=== PATIENT | female | born 1950 | race Hispanic/Latino ===

== ENCOUNTER 2018-07-01 12:45 | Outpatient (RCR) | payer MEDICARE, OTHER, SELFPAY ==
--- NOTE | 2018-04-15 17:00 | PT.OIE ---
Current Diagnoses Other chronic pain (04/15/18) Pain in right shoulder (04/15/18) Pain in left shoulder (04/15/18) Cervicalgia (04/15/18) Lumbago with sciatica, right side (04/15/18) Lumbago with sciatica, left side (04/15/18) Other symptoms and signs involving the musculoskeletal system (04/15/18) Past Medical History (Last Reviewed 04/16/18 @ 12:12 by Quyen Castro, PT) Ankle fracture, left (Acute) Past Surgical History (Last Reviewed 04/16/18 @ 12:12 by Quyen Castro, PT) History of basal cell carcinoma (BCC) excision (Acute) Provider Visit Care Team Role Provider Type Marilyn Clifton MD Attending Provider Non-Staff Primary Care Provider Specialty: Medical Address: [address] [place] [address], [phone] Email: Physical Therapy Initial Evaluation PT-OP-A Visit Information Start: 04/14/18 16:14 Freq: Status: Active Protocol: Document 04/15/18 11:22 LRN (Rec: 04/15/18 12:14 LRN [id number]) Out-Patient Physical Therapy Visit Information Visit Information Visit Type Initial Evaluation Visit Start Time 11:22 Visit Stop Time 12:14 Total Visit Minutes 52 Visit Number 1 Number of MAGNETIC DOCTOR Visits 0 Evaluation Information Evaluation Date 04/15/18 PT-OP-B Current Condition Start: 04/14/18 16:14 Freq: Status: Active Protocol: Document 04/15/18 11:22 LRN (Rec: 04/15/18 12:14 LRN [id number]) Current Condition History of Current Condition Onset Date 3 months ago Current Complaints L shoulder & tailbone pain and tingling, R posterior thigh pain. History of Current Condition During this past summer after yard working she started to have onset of L shoulder and tailbone pain. She reports L shoulder tingling and tingling in the tailbone and radiating pain down the posterior R thigh. She normally does yoga for exercise but hasn't been doing yoga for the past month. She restarted yoga yesterday. PMH: Mole or possible wart on the inner L ear canal, Basal Cell Carcinoma, Chronic bilateral LBP with bilateral Sciatica, L ankle fracture 2013. Prior Treatments and Tests X-ray, results unknown. Pt reports doctor told her pain is due to muscles in upper back. Pt given muscle relaxers that was helpful. Future Testing and Treatments Planned Follow up appt in June 2018. Treatment Goals Patient/Caregiver Goals Goal with therapy is restart exercise without increasing pain. Prior Functional Status Baseline Function- ADL's Independent Baseline Function- Mobility Independent Baseline Function- Work/School Homemaker. Baseline Function- Other Restricted with lifting heavy things, moving furniture. Ongoing Mild pain. Current Functional Impairments (Reported) Functional Limitations- ADL's Pain with ADL's slowing function. Functional Limitations- Recreation/ Restricted with exercise Hobbies program. Functional Limitations- Other Limited with lifting. Personal Factors Other Personal Factors That May Effect Prior history of LBP and Therapy/Recovery radicular R leg pain with partial resolution. Prior history of L shoulder pain with partial resolution. PT-OP-C Subjective Start: 04/14/18 16:14 Freq: Status: Active Protocol: Document 04/15/18 11:22 LRN (Rec: 04/15/18 17:03 LRN [id number]) Patient Questionnaires Oswestry Low Back Index Oswestry Score 3 Oswestry Impairment 1 to 19% Impaired (Score 1-19) Quick Dash- Upper Extremity Quick Dash UE Score 13.63 Quick Dash UE Impairment 1 to 19% Impaired (Score 1-19) OP-PT Pain Assessment Pain Assessment Grid Paper Pain Assessment Grid Completed Yes Location Bilateral Lower Back Pain Location Details Tailbone Intensity 2 Scale Used Numeric (1 - 10) Frequency Intermittent Left Posterior Shoulder Pain Location Details Supraspinatus & Rhomboids Intensity 2 Scale Used Numeric (1 - 10) Frequency Intermittent PT-OP-E Functional Tests Start: 04/14/18 16:14 Freq: Status: Active Protocol: Document 04/15/18 11:22 LRN (Rec: 04/15/18 16:59 LRN [id number]) Functional Tests Daniela's Scratch Test Action 1: The subject is instructed to touch the opposite shoulder with his/her hand. This motion checks Glenohumeral adduction, internal rotation , horizontal adduction and scapular protraction Action 2: The subject is instructed to place his/her arm overhead and reach behind the neck to touch his/her upper back. This motion checks Glenohumeral abduction, external rotation and scapular upward rotation and elevation. Action 3: The subject puts his/her hand on the lower back and reaches upward as far as possible. This motion checks glenohumeral adduction, internal rotation and scapular retraction with downward rotation Action 2- Left T3 Action 2- Right T3 Action 3- Left T8 Action 3- Right T9 PT-OP-F Manual Assessment Start: 04/14/18 16:14 Freq: Status: Active Protocol: Document 04/15/18 11:22 LRN (Rec: 04/15/18 16:59 LRN [id number]) Manual Assessments Soft Tissue Assessment Soft Tissue Mobility Assessment Increased tension of L side of coccyx, L lumbar paraspinals and L posterior upper back intrascapular and supraspinatus. Joint Mobility Assessment Joint Mobility Assessment Decreased in Lumbar spine for R sidebend and L rotation. PT-OP-H Neuro Start: 04/14/18 16:14 Freq: Status: Active Protocol: Document 04/15/18 11:22 LRN (Rec: 04/15/18 16:59 LRN [id number]) Sensation Evaluation Gross Sensation Gross Sensation WNL Deep Tendon Reflex & Clonus Assessment Deep Tendon Reflex Left Achilles Deep Tendon Reflex 1+ Diminished PT-OP-J Posture/Palpation/Skin Start: 04/14/18 16:14 Freq: Status: Active Protocol: Document 04/15/18 11:22 LRN (Rec: 04/15/18 16:59 LRN [id number]) Posture Evaluation Position Standing Evaluation View All positions Shoulder Posture (L) Elevated Comments Posture Comments Standing Posture: Neck is R tilted, L shoulder is elevated and retracted, moderate Dowagers hump, decreased thoracic kyphosis except T6 is posterior displaced, T7 is R rotated, mid thoracic spine is C-curved with apex on the left, Coccyx is sidebent right , mild varus of legs. Palpation Assessment Location Two Palpation Location Coccyx Palpation Findings Tenderness Palpation Details L lateral side of coccyx tender. One Palpation Location L Supraspinatus muscle belly Palpation Findings Muscle Guarding Tenderness Trigger Point PT-OP-K Range of Motion Start: 04/14/18 16:14 Freq: Status: Active Protocol: Document 04/15/18 11:22 LRN (Rec: 04/15/18 16:59 LRN [id number]) Cervical Spine Range of Motion Cervical Spine Passive Percentage Rotation Left 90 Comments All other motions were WNL. Lumbar Spine Range of Motion Lumbar Spine Active Degrees Testing Position Standing Flexion 90 Extension 10 Rotation Left 40 Rotation Right 45 Lateral Flexion Left 20 Lateral Flexion Right 10 ROM Limitations Soft Tissue Tightness Bony Restriction Comments Rotation ROM is approximate. Hip Goniometric Range of Motion Hip Measured in Degrees Right Passive Testing Position Supine Internal Rotation 45 External Rotation 75 Left Passive Testing Position Supine Internal Rotation 40 External Rotation 75 PT-OP-L Special Tests Start: 04/14/18 16:14 Freq: Status: Active Protocol: Document 04/15/18 11:22 LRN (Rec: 04/15/18 16:59 LRN [id number]) Special Tests Lumbar Spine Special Tests Straight Leg Raise Test Results Negative bilaterally Shoulder Special Tests Elevation Impingement Test Results Negative Comments L shoulder PT-OP-M Strength Start: 04/14/18 16:14 Freq: Status: Active Protocol: Document 04/15/18 11:22 LRN (Rec: 04/15/18 16:59 LRN [id number]) Cervical Spine Strength Cervical Spine Manual Muscle Testing Testing Position Supine Hip Strength Hip Manual Muscle Testing Left Extension (S1) 4 Good Knee Strength Knee Manual Muscle Testing Left Flexion (S2) 4 Good Comments Generally LE strength is 5/5 bilaterally except as noted above for L hip and knee. PT-OP-Q Treatments Start: 04/14/18 16:14 Freq: Status: Active Protocol: Document 04/15/18 11:22 LRN (Rec: 04/15/18 16:59 LRN [id number]) Manual Therapy Treatment Joint Mobilizations Sacrum Direction Correcting a R rotated Sacrum Grade II Body Position Prone Coccyx Direction Correcting a R sidebend Grade III Body Position Prone Comments Oscillations. Self-Care/Home Management Treatment Education Patient Education Home Exercise Program Other Education Issued and reviewed Cervical Upper trapezius and supraspinatus stretch. PT-OP-T Assessment and Plan Start: 04/14/18 16:14 Freq: Status: Active Protocol: Document 04/15/18 11:22 LRN (Rec: 04/15/18 16:59 LRN [id number]) Physical Therapy Assessment Rehab Potential Rehabilitation Potential Good Evaluation Complexity Number of Personal Factors/Comorbidities 1-2 Number of Body Systems Impaired 4 or More Clinical Presentation at Evaluation Evolving Impairments Impairments Activity Tolerance Pain Posture ROM Soft Tissue Mobility Strength Tone Other Concerns Age Related Concerns > 65 years old. Barriers to Rehabilitation History of Basal cell carcinoma limiting modality use. Goals Three Impairment Upper back and low back/coccyx pain Demand Generation Manager Goal (LTG) Pt will be able to return to yoga exercise and home activities without onset of pain. LTG Duration 06/17/09 Two Impairment L shoulder pain limiting ability to sleep Demand Generation Manager Goal (LTG) Pt will be able to improve ability to sleep at night without being limited by pain. LTG Duration 05/17/18 One Impairment Lacks appropriate HEP Demand Generation Manager Goal (LTG) Pt will be independent in HEP self care exercises. LTG Duration 06/17/09 Assessment Summary Assessment Pt presents with muscle tightness and pain in the L Supraspinatus and scapular stabilizers resulting in limited L shoulder mobility and function. She has soft tissue tightness and mechanical dysfunction of the upper and low back/sacrum/ coccyx with radiating pain into the posterior thighs that are limiting functional mobility. The pt will benefit from skilled physical therapy for normalization of muscle tone, improved spinal and L shoulder mobility, improved LE strength and core stability and placement onto a self care HEP. Physical Therapy Plan Frequency and Duration Frequency of Treatment 2x/Week Plan of Care Start Date 04/15/18 Plan of Care End Date 06/13/18 Therapeutic Interventions Therapeutic Interventions Home Exercise Program Joint Mobilizations Manual Therapy Neuromuscular Re-education Patient/Caregiver Education Self-Care/Home Management Soft Tissue Mobilization Taping Therapeutic Exercises Modalities Cold Pack/Ice Massage Hot Packs Next Visit Focus/Plan Next Note Type Treatment Note Next Visit Plan Review HEP issued. Start exercise bike; f/b LE neural & L hip IR stretch; strengthening: L hamstrings & hip extensors, core stabilization; manual therapy to thoracic and lumbar spine/ coccyx & L Supraspinatus/ Rhomboids; education on proper posturing. End with cryotherapy.
--- NOTE | 2018-04-16 12:23 | PT.OPPOC ---
Current Diagnoses Other chronic pain (04/15/18) Pain in right shoulder (04/15/18) Pain in left shoulder (04/15/18) Cervicalgia (04/15/18) Lumbago with sciatica, right side (04/15/18) Lumbago with sciatica, left side (04/15/18) Other symptoms and signs involving the musculoskeletal system (04/15/18) Provider Visit Care Team Role Provider Type Marilyn Clifton MD Attending Provider Non-Staff Primary Care Provider Specialty: Medical Address: [address] [place] [address], [phone] Email: Plan Of Care PT-OP-T Assessment and Plan Start: 04/14/18 16:14 Freq: Status: Active Protocol: Document 04/15/18 11:22 LRN (Rec: 04/15/18 16:59 LRN [id number]) Physical Therapy Assessment Rehab Potential Rehabilitation Potential Good Evaluation Complexity Number of Personal Factors/Comorbidities 1-2 Number of Body Systems Impaired 4 or More Clinical Presentation at Evaluation Evolving Impairments Impairments Activity Tolerance Pain Posture ROM Soft Tissue Mobility Strength Tone Other Concerns Age Related Concerns > 65 years old. Barriers to Rehabilitation History of Basal cell carcinoma limiting modality use. Goals Three Impairment Upper back and low back/coccyx pain International Trade Manager Goal (LTG) Pt will be able to return to yoga exercise and home activities without onset of pain. LTG Duration 06/17/09 Two Impairment L shoulder pain limiting ability to sleep Longterm Goal (LTG) Pt will be able to improve ability to sleep at night without being limited by pain. LTG Duration 05/17/18 One Impairment Lacks appropriate HEP Longterm Goal (LTG) Pt will be independent in HEP self care exercises. LTG Duration 06/17/09 Assessment Summary Assessment Pt presents with muscle tightness and pain in the L Supraspinatus and scapular stabilizers resulting in limited L shoulder mobility and function. She has soft tissue tightness and mechanical dysfunction of the upper and low back/sacrum/ coccyx with radiating pain into the posterior thighs that are limiting functional mobility. The pt will benefit from skilled physical therapy for normalization of muscle tone, improved spinal and L shoulder mobility, improved LE strength and core stability and placement onto a self care HEP. Physical Therapy Plan Frequency and Duration Frequency of Treatment 2x/Week Plan of Care Start Date 04/15/18 Plan of Care End Date 06/13/18 Therapeutic Interventions Therapeutic Interventions Home Exercise Program Joint Mobilizations Manual Therapy Neuromuscular Re-education Patient/Caregiver Education Self-Care/Home Management Soft Tissue Mobilization Taping Therapeutic Exercises Modalities Cold Pack/Ice Massage Hot Packs Next Visit Focus/Plan Next Note Type Treatment Note Next Visit Plan Review HEP issued. Start exercise bike; f/b LE neural & L hip IR stretch; strengthening: L hamstrings & hip extensors, core stabilization; manual therapy to thoracic and lumbar spine/ coccyx & L Supraspinatus/ Rhomboids; education on proper posturing. End with cryotherapy. Plan of Care Dates Plan of Care Start Date 04/15/18 Plan of Care End Date 06/13/18 Please Sign and Return: I have reviewed this Plan of Care and certify that the skilled therapy services above are required to meet the patient?s needs. Physician Signature Date Printed Name and Credentials Clinical Instructor Signature Printed Name and Credentials
--- NOTE | 2018-04-17 09:48 | PT.OTN ---
Current Diagnoses Other chronic pain (04/17/18) Pain in right shoulder (04/17/18) Pain in left shoulder (04/17/18) Cervicalgia (04/17/18) Lumbago with sciatica, right side (04/17/18) Lumbago with sciatica, left side (04/17/18) Physical Therapy Treatment Note PT-OP-A Visit Information Start: 04/14/18 16:14 Freq: Status: Active Protocol: Document 04/17/18 08:17 LRN (Rec: 04/17/18 09:04 LRN [id number]) Out-Patient Physical Therapy Visit Information Visit Information Visit Type Treatment Note Visit Start Time 08:17 Visit Stop Time 09:07 Total Visit Minutes 50 Visit Number 07/13 Number of PBX INSTALLER Visits 0 Evaluation Information Evaluation Date 04/15/18 PT-OP-B Current Condition Start: 04/14/18 16:14 Freq: Status: Active Protocol: Document 04/15/18 11:22 LRN (Rec: 04/15/18 12:14 LRN [id number]) Current Condition History of Current Condition Onset Date 3 months ago Current Complaints L shoulder & tailbone pain and tingling, R posterior thigh pain. History of Current Condition During this past summer after yard working she started to have onset of L shoulder and tailbone pain. She reports L shoulder tingling and tingling in the tailbone and radiating pain down the posterior R thigh. She normally does yoga for exercise but hasn't been doing yoga for the past month. She restarted yoga yesterday. PMH: Mole or possible wart on the inner L ear canal, Basal Cell Carcinoma, Chronic bilateral LBP with bilateral Sciatica, L ankle fracture 2013. Prior Treatments and Tests X-ray, results unknown. Pt reports doctor told her pain is due to muscles in upper back. Pt given muscle relaxers that was helpful. Future Testing and Treatments Planned Follow up MD appt in June 2018. Treatment Goals Patient/Caregiver Goals Goal with therapy is restart exercise without increasing pain. Prior Functional Status Baseline Function- ADL's Independent Baseline Function- Mobility Independent Baseline Function- Work/School Homemaker. Baseline Function- Other Restricted with lifting heavy things, moving furniture. Ongoing Mild pain. Current Functional Impairments (Reported) Functional Limitations- ADL's Pain with ADL's slowing function. Functional Limitations- Recreation/ Restricted with exercise Hobbies program. Functional Limitations- Other Limited with lifting. Personal Factors Other Personal Factors That May Effect Prior history of LBP and Therapy/Recovery radicular R leg pain with partial resolution. Prior history of L shoulder pain with partial resolution. PT-OP-C Subjective Start: 04/14/18 16:14 Freq: Status: Active Protocol: Document 04/17/18 08:17 LRN (Rec: 04/17/18 09:04 LRN [id number]) OP-PT Subjective Patient Comments Patient Comments States only having tingling in the posterior left Upper Back . Did Yoga this week and did home neck stretch. OP-PT Pain Assessment Pain Assessment Grid Paper Pain Assessment Grid Completed No Location Bilateral Lower Back Intensity 0 Left Posterior Shoulder Intensity 2 Description- Other Tingling PT-OP-E Functional Tests Start: 04/14/18 16:14 Freq: Status: Active Protocol: Document 04/15/18 11:22 LRN (Rec: 04/15/18 16:59 LRN [id number]) Functional Tests Apley's Scratch Test Action 1: The subject is instructed to touch the opposite shoulder with his/her hand. This motion checks Glenohumeral adduction, internal rotation , horizontal adduction and scapular protraction Action 2: The subject is instructed to place his/her arm overhead and reach behind the neck to touch his/her upper back. This motion checks Glenohumeral abduction, external rotation and scapular upward rotation and elevation. Action 3: The subject puts his/her hand on the lower back and reaches upward as far as possible. This motion checks glenohumeral adduction, internal rotation and scapular retraction with downward rotation Action 2- Left T3 Action 2- Right T3 Action 3- Left T8 Action 3- Right T9 PT-OP-F Manual Assessment Start: 04/14/18 16:14 Freq: Status: Active Protocol: Document 04/15/18 11:22 LRN (Rec: 04/15/18 16:59 LRN [id number]) Manual Assessments Soft Tissue Assessment Soft Tissue Mobility Assessment Increased tension of L side of coccyx, L lumbar paraspinals and L posterior upper back intrascapular and supraspinatus. Joint Mobility Assessment Joint Mobility Assessment Decreased in Lumbar spine for R sidebend and L rotation. PT-OP-H Neuro Start: 04/14/18 16:14 Freq: Status: Active Protocol: Document 04/15/18 11:22 LRN (Rec: 04/15/18 16:59 LRN [id number]) Sensation Evaluation Gross Sensation Gross Sensation WNL Deep Tendon Reflex & Clonus Assessment Deep Tendon Reflex Left Achilles Deep Tendon Reflex 1+ Diminished PT-OP-J Posture/Palpation/Skin Start: 04/14/18 16:14 Freq: Status: Active Protocol: Document 04/15/18 11:22 LRN (Rec: 04/15/18 16:59 LRN [id number]) Posture Evaluation Position Standing Evaluation View All positions Shoulder Posture (L) Elevated Comments Posture Comments Standing Posture: Neck is R tilted, L shoulder is elevated and retracted, moderate Dowagers hump, decreased thoracic kyphosis except T6 is posterior displaced, T7 is R rotated, mid thoracic spine is C-curved with apex on the left, Coccyx is sidebent right , mild varus of legs. Palpation Assessment Location Two Palpation Location Coccyx Palpation Findings Tenderness Palpation Details L lateral side of coccyx tender. One Palpation Location L Supraspinatus muscle belly Palpation Findings Muscle Guarding Tenderness Trigger Point PT-OP-K Range of Motion Start: 04/14/18 16:14 Freq: Status: Active Protocol: Document 04/15/18 11:22 LRN (Rec: 04/15/18 16:59 LRN [id number]) Cervical Spine Range of Motion Cervical Spine Passive Percentage Rotation Left 90 Comments All other motions were WNL. Lumbar Spine Range of Motion Lumbar Spine Active Degrees Testing Position Standing Flexion 90 Extension 10 Rotation Left 40 Rotation Right 45 Lateral Flexion Left 20 Lateral Flexion Right 10 ROM Limitations Soft Tissue Tightness Bony Restriction Comments Rotation ROM is approximate. Hip Goniometric Range of Motion Hip Measured in Degrees Right Passive Testing Position Supine Internal Rotation 45 External Rotation 75 Left Passive Testing Position Supine Internal Rotation 40 External Rotation 75 PT-OP-L Special Tests Start: 04/14/18 16:14 Freq: Status: Active Protocol: Document 04/15/18 11:22 LRN (Rec: 04/15/18 16:59 LRN [id number]) Special Tests Lumbar Spine Special Tests Straight Leg Raise Test Results Negative bilaterally Shoulder Special Tests Elevation Impingement Test Results Negative Comments L shoulder PT-OP-M Strength Start: 04/14/18 16:14 Freq: Status: Active Protocol: Document 04/15/18 11:22 LRN (Rec: 04/15/18 16:59 LRN [id number]) Cervical Spine Strength Cervical Spine Manual Muscle Testing Testing Position Supine Hip Strength Hip Manual Muscle Testing Left Extension (S1) 4 Good Knee Strength Knee Manual Muscle Testing Left Flexion (S2) 4 Good Comments Generally LE strength is 5/5 bilaterally except as noted above for L hip and knee. PT-OP-Q Treatments Start: 04/14/18 16:14 Freq: Status: Active Protocol: Document 04/17/18 08:17 LRN (Rec: 04/17/18 09:04 LRN [id number]) Cardio Equipment Bicycle (Upright) Duration (Minutes) 6 Resistance 3 Seat Position Min Other With: Shoulder rolls, L Middle Trap/Rhomboid stretch Therapeutic Exercises Supine Exercises KTC stretch Side bilateral Reps/Minutes 5' HS/LE Neural stretch Side bilateral Reps/Minutes 5' Sitting Exercises C/S & Shoulders AROM Side bilateral Rhomboid/Mid Trap strengthening Side right Reps/Minutes 10x3 Comments Exercise after stretching of Rhomboid/Mid Trap Rhomboid/Mid Trap Stretch Side left Reps/Minutes 4' Comments Both on and off ex bike UT & Lev Scap stretch Side left Reps/Minutes 2' each Manual Therapy Treatment Joint Mobilizations T2-T6 Direction Correction of rotations Grade III Body Position Prone Reps/Duration 15' Comments Grade II-III for Oscillations Self-Care/Home Management Treatment Education Other Education I/S pt to do same of L Rhomboid/MT stretch f/b R Rhomboid/MT strengthening. PT-OP-R Modalities Start: 04/14/18 16:14 Freq: Status: Active Protocol: Document 04/17/18 08:17 LRN (Rec: 04/17/18 09:04 LRN [id number]) Hot Pack/Cold Pack Treatment Cold Pack Location Upper back Treatment Duration (minutes) 10 Comments Extra Towel protection PT-OP-T Assessment and Plan Start: 04/14/18 16:14 Freq: Status: Active Protocol: Document 04/17/18 08:17 LRN (Rec: 04/17/18 09:04 LRN [id number]) Physical Therapy Assessment Assessment Summary Assessment + response to therapy with resolution of left upper back tingling. Physical Therapy Plan Frequency and Duration Frequency of Treatment 2x/Week Plan of Care Start Date 04/15/18 Plan of Care End Date 06/13/18 Next Visit Focus/Plan Next Visit Plan Start ex with L upper back stretch and R upper back strengthening; review LE neural and issue handout. Start L hip IR stretch & strengthen L hamstrings & hip extensors. Manual therapy to thoracic and lumbar spine, coccyx & L supraspinatus ( check rhomboids). Core stabilization. Posture training sitting and standing. End Cryotherapy.
--- NOTE | 2018-04-22 12:14 | PT.OTN ---
Current Diagnoses Other chronic pain (04/22/18) Pain in right shoulder (04/22/18) Pain in left shoulder (04/22/18) Cervicalgia (04/22/18) Lumbago with sciatica, right side (04/22/18) Lumbago with sciatica, left side (04/22/18) Physical Therapy Treatment Note PT-OP-A Visit Information Start: 04/14/18 16:14 Freq: Status: Active Protocol: Document 04/22/18 11:15 LRN (Rec: 04/22/18 12:13 LRN [id number]) Out-Patient Physical Therapy Visit Information Visit Information Visit Type Treatment Note Visit Start Time 11:15 Visit Stop Time 12:10 Total Visit Minutes 55 Visit Number 08/10 Number of ASSISTANT CHIEF NURSING OFFICER Visits 0 Evaluation Information Evaluation Date 04/15/18 PT-OP-B Current Condition Start: 04/14/18 16:14 Freq: Status: Active Protocol: Document 04/15/18 11:22 LRN (Rec: 04/15/18 12:14 LRN [id number]) Current Condition History of Current Condition Onset Date 3 months ago Current Complaints L shoulder & tailbone pain and tingling, R posterior thigh pain. History of Current Condition During this past summer after yard working she started to have onset of L shoulder and tailbone pain. She reports L shoulder tingling and tingling in the tailbone and radiating pain down the posterior R thigh. She normally does yoga for exercise but hasn't been doing yoga for the past month. She restarted yoga yesterday. PMH: Mole or possible wart on the inner L ear canal, Basal Cell Carcinoma, Chronic bilateral LBP with bilateral Sciatica, L ankle fracture 2013. Prior Treatments and Tests X-ray, results unknown. Pt reports doctor told her pain is due to muscles in upper back. Pt given muscle relaxers that was helpful. Future Testing and Treatments Planned Follow up MD appt in June 2018. Treatment Goals Patient/Caregiver Goals Goal with therapy is restart exercise without increasing pain. Prior Functional Status Baseline Function- ADL's Independent Baseline Function- Mobility Independent Baseline Function- Work/School Homemaker. Baseline Function- Other Restricted with lifting heavy things, moving furniture. Ongoing Mild pain. Current Functional Impairments (Reported) Functional Limitations- ADL's Pain with ADL's slowing function. Functional Limitations- Recreation/ Restricted with exercise Hobbies program. Functional Limitations- Other Limited with lifting. Personal Factors Other Personal Factors That May Effect Prior history of LBP and Therapy/Recovery radicular R leg pain with partial resolution. Prior history of L shoulder pain with partial resolution. PT-OP-C Subjective Start: 04/14/18 16:14 Freq: Status: Active Protocol: Document 04/22/18 11:15 LRN (Rec: 04/22/18 12:13 LRN [id number]) OP-PT Subjective Patient Comments Patient Comments Notices most of the time the tingling is after waking up in the morning. OP-PT Pain Assessment Pain Assessment Grid Paper Pain Assessment Grid Completed No Location Bilateral Lower Back Intensity 0 PT-OP-E Functional Tests Start: 04/14/18 16:14 Freq: Status: Active Protocol: Document 04/15/18 11:22 LRN (Rec: 04/15/18 16:59 LRN [id number]) Functional Tests Apley's Scratch Test Action 1: The subject is instructed to touch the opposite shoulder with his/her hand. This motion checks Glenohumeral adduction, internal rotation , horizontal adduction and scapular protraction Action 2: The subject is instructed to place his/her arm overhead and reach behind the neck to touch his/her upper back. This motion checks Glenohumeral abduction, external rotation and scapular upward rotation and elevation. Action 3: The subject puts his/her hand on the lower back and reaches upward as far as possible. This motion checks glenohumeral adduction, internal rotation and scapular retraction with downward rotation Action 2- Left T3 Action 2- Right T3 Action 3- Left T8 Action 3- Right T9 PT-OP-F Manual Assessment Start: 04/14/18 16:14 Freq: Status: Active Protocol: Document 04/15/18 11:22 LRN (Rec: 04/15/18 16:59 LRN [id number]) Manual Assessments Soft Tissue Assessment Soft Tissue Mobility Assessment Increased tension of L side of coccyx, L lumbar paraspinals and L posterior upper back intrascapular and supraspinatus. Joint Mobility Assessment Joint Mobility Assessment Decreased in Lumbar spine for R sidebend and L rotation. PT-OP-H Neuro Start: 04/14/18 16:14 Freq: Status: Active Protocol: Document 04/15/18 11:22 LRN (Rec: 04/15/18 16:59 LRN [id number]) Sensation Evaluation Gross Sensation Gross Sensation WNL Deep Tendon Reflex & Clonus Assessment Deep Tendon Reflex Left Achilles Deep Tendon Reflex 1+ Diminished PT-OP-J Posture/Palpation/Skin Start: 04/14/18 16:14 Freq: Status: Active Protocol: Document 04/15/18 11:22 LRN (Rec: 04/15/18 16:59 LRN [id number]) Posture Evaluation Position Standing Evaluation View All positions Shoulder Posture (L) Elevated Comments Posture Comments Standing Posture: Neck is R tilted, L shoulder is elevated and retracted, moderate Dowagers hump, decreased thoracic kyphosis except T6 is posterior displaced, T7 is R rotated, mid thoracic spine is C-curved with apex on the left, Coccyx is sidebent right , mild varus of legs. Palpation Assessment Location Two Palpation Location Coccyx Palpation Findings Tenderness Palpation Details L lateral side of coccyx tender. One Palpation Location L Supraspinatus muscle belly Palpation Findings Muscle Guarding Tenderness Trigger Point PT-OP-K Range of Motion Start: 04/14/18 16:14 Freq: Status: Active Protocol: Document 04/15/18 11:22 LRN (Rec: 04/15/18 16:59 LRN [id number]) Cervical Spine Range of Motion Cervical Spine Passive Percentage Rotation Left 90 Comments All other motions were WNL. Lumbar Spine Range of Motion Lumbar Spine Active Degrees Testing Position Standing Flexion 90 Extension 10 Rotation Left 40 Rotation Right 45 Lateral Flexion Left 20 Lateral Flexion Right 10 ROM Limitations Soft Tissue Tightness Bony Restriction Comments Rotation ROM is approximate. Hip Goniometric Range of Motion Hip Measured in Degrees Right Passive Testing Position Supine Internal Rotation 45 External Rotation 75 Left Passive Testing Position Supine Internal Rotation 40 External Rotation 75 PT-OP-L Special Tests Start: 04/14/18 16:14 Freq: Status: Active Protocol: Document 04/15/18 11:22 LRN (Rec: 04/15/18 16:59 LRN [id number]) Special Tests Lumbar Spine Special Tests Straight Leg Raise Test Results Negative bilaterally Shoulder Special Tests Elevation Impingement Test Results Negative Comments L shoulder PT-OP-M Strength Start: 04/14/18 16:14 Freq: Status: Active Protocol: Document 04/15/18 11:22 LRN (Rec: 04/15/18 16:59 LRN [id number]) Cervical Spine Strength Cervical Spine Manual Muscle Testing Testing Position Supine Hip Strength Hip Manual Muscle Testing Left Extension (S1) 4 Good Knee Strength Knee Manual Muscle Testing Left Flexion (S2) 4 Good Comments Generally LE strength is 5/5 bilaterally except as noted above for L hip and knee. PT-OP-Q Treatments Start: 04/14/18 16:14 Freq: Status: Active Protocol: Document 04/22/18 11:15 LRN (Rec: 04/22/18 12:13 LRN [id number]) Cardio Equipment Bicycle (Upright) Duration (Minutes) 6 Resistance 3 Seat Position Min Other With: Shoulder rolls, L Middle Trap/Rhomboid stretch Therapeutic Exercises Supine Exercises HS/LE Neural stretch Side bilateral Reps/Minutes 5' Prone Exercises Hip Extension Prone Exercise Name Leg lift Side bilateral Reps/Minutes 10x Hamstring strengthening Prone Exercise Name Knee flexion Side left Reps/Minutes 30 Sidelying Exercises Reverse Clam Sidelying Exercise Name R sidelie lifting L foot. Side left Reps/Minutes 15x2 Sitting Exercises Rhomboid/Mid Trap strengthening Side right Reps/Minutes 10x3 Comments Exercise after stretching of Rhomboid/Mid Trap Rhomboid/Mid Trap Stretch Side left Reps/Minutes 4' Comments Both on and off ex bike Manual Therapy Treatment Joint Mobilizations T2-T6 Direction Correction of rotations Grade III Body Position Prone Reps/Duration 15' Comments Grade II-III for Oscillations Sacrum Joint Sacrum Direction Correcting a L rotation Body Position Prone Coccyx Joint Coccyx Direction Correcting a L rotation Grade III Body Position Prone Comments Oscillations. Self-Care/Home Management Treatment Education Other Education I/S in LE neural stretch & L Piriformis stretch. Pt has LE neural/hamstring stretch handout from previous PT sessions. Pt can ex L hip ext , knee flexion if she wants. PT-OP-R Modalities Start: 04/14/18 16:14 Freq: Status: Active Protocol: Document 04/22/18 11:15 LRN (Rec: 04/22/18 12:13 LRN [id number]) Hot Pack/Cold Pack Treatment Cold Pack Location Upper back Treatment Duration (minutes) 10 Comments Extra Towel protection PT-OP-T Assessment and Plan Start: 04/14/18 16:14 Freq: Status: Active Protocol: Document 04/22/18 11:15 LRN (Rec: 04/22/18 12:13 LRN [id number]) Physical Therapy Assessment Progress Towards Goals Progress Towards Goals Progressing Toward Goals Assessment Summary Assessment Pt low back and hip muscle tone symmetry is much improved . She did not tolerate hip ext on R, with onset of tingling in the posterior thigh, but tolerated well strengthening on the left ( weak side), probably due to decreased core stability. Further L sided strengthening needed for stability. Physical Therapy Plan Next Visit Focus/Plan Next Visit Plan Cont L upper back strengthening followed by stretch. Review stretch to L hip IR and strengthening of L hip (hamstrings & extensors), manual therapy to T/S, and if needed to L/S & Coccyx. Add manual therapy to L Supraspinatus. Strengthen Core.
--- NOTE | 2018-04-29 13:56 | PT.OTN ---
Current Diagnoses Other chronic pain (04/29/18) Pain in right shoulder (04/29/18) Pain in left shoulder (04/29/18) Cervicalgia (04/29/18) Lumbago with sciatica, right side (04/29/18) Lumbago with sciatica, left side (04/29/18) Physical Therapy Treatment Note PT-OP-A Visit Information Start: 04/14/18 16:14 Freq: Status: Active Protocol: Document 04/29/18 11:25 LRN (Rec: 04/29/18 12:30 LRN [id number]) Out-Patient Physical Therapy Visit Information Visit Information Visit Type Treatment Note Visit Start Time 11:25 Visit Stop Time 12:25 Total Visit Minutes 60 Visit Number 4/ Number of LOCOMOTIVE ENGINEER Visits 0 Evaluation Information Evaluation Date 04/15/18 PT-OP-B Current Condition Start: 04/14/18 16:14 Freq: Status: Active Protocol: Document 04/15/18 11:22 LRN (Rec: 04/15/18 12:14 LRN [id number]) Current Condition History of Current Condition Onset Date 3 months ago Current Complaints L shoulder & tailbone pain and tingling, R posterior thigh pain. History of Current Condition During this past summer after yard working she started to have onset of L shoulder and tailbone pain. She reports L shoulder tingling and tingling in the tailbone and radiating pain down the posterior R thigh. She normally does yoga for exercise but hasn't been doing yoga for the past month. She restarted yoga yesterday. PMH: Mole or possible wart on the inner L ear canal, Basal Cell Carcinoma, Chronic bilateral LBP with bilateral Sciatica, L ankle fracture 2013. Prior Treatments and Tests X-ray, results unknown. Pt reports doctor told her pain is due to muscles in upper back. Pt given muscle relaxers that was helpful. Future Testing and Treatments Planned Follow up MD appt in June 2018. Treatment Goals Patient/Caregiver Goals Goal with therapy is restart exercise without increasing pain. Prior Functional Status Baseline Function- ADL's Independent Baseline Function- Mobility Independent Baseline Function- Work/School Homemaker. Baseline Function- Other Restricted with lifting heavy things, moving furniture. Ongoing Mild pain. Current Functional Impairments (Reported) Functional Limitations- ADL's Pain with ADL's slowing function. Functional Limitations- Recreation/ Restricted with exercise Hobbies program. Functional Limitations- Other Limited with lifting. Personal Factors Other Personal Factors That May Effect Prior history of LBP and Therapy/Recovery radicular R leg pain with partial resolution. Prior history of L shoulder pain with partial resolution. PT-OP-C Subjective Start: 04/14/18 16:14 Freq: Status: Active Protocol: Document 04/29/18 11:25 LRN (Rec: 04/29/18 12:34 LRN [id number]) OP-PT Subjective Patient Comments Patient Comments L shoulder is bothering her more than LB. Back is a little better. PT-OP-E Functional Tests Start: 04/14/18 16:14 Freq: Status: Active Protocol: Document 04/15/18 11:22 LRN (Rec: 04/15/18 16:59 LRN [id number]) Functional Tests Apley's Scratch Test Action 1: The subject is instructed to touch the opposite shoulder with his/her hand. This motion checks Glenohumeral adduction, internal rotation , horizontal adduction and scapular protraction Action 2: The subject is instructed to place his/her arm overhead and reach behind the neck to touch his/her upper back. This motion checks Glenohumeral abduction, external rotation and scapular upward rotation and elevation. Action 3: The subject puts his/her hand on the lower back and reaches upward as far as possible. This motion checks glenohumeral adduction, internal rotation and scapular retraction with downward rotation Action 2- Left T3 Action 2- Right T3 Action 3- Left T8 Action 3- Right T9 PT-OP-F Manual Assessment Start: 04/14/18 16:14 Freq: Status: Active Protocol: Document 04/15/18 11:22 LRN (Rec: 04/15/18 16:59 LRN [id number]) Manual Assessments Soft Tissue Assessment Soft Tissue Mobility Assessment Increased tension of L side of coccyx, L lumbar paraspinals and L posterior upper back intrascapular and supraspinatus. Joint Mobility Assessment Joint Mobility Assessment Decreased in Lumbar spine for R sidebend and L rotation. PT-OP-H Neuro Start: 04/14/18 16:14 Freq: Status: Active Protocol: Document 04/15/18 11:22 LRN (Rec: 04/15/18 16:59 LRN [id number]) Sensation Evaluation Gross Sensation Gross Sensation WNL Deep Tendon Reflex & Clonus Assessment Deep Tendon Reflex Left Achilles Deep Tendon Reflex 1+ Diminished PT-OP-J Posture/Palpation/Skin Start: 04/14/18 16:14 Freq: Status: Active Protocol: Document 04/15/18 11:22 LRN (Rec: 04/15/18 16:59 LRN [id number]) Posture Evaluation Position Standing Evaluation View All positions Shoulder Posture (L) Elevated Comments Posture Comments Standing Posture: Neck is R tilted, L shoulder is elevated and retracted, moderate Dowagers hump, decreased thoracic kyphosis except T6 is posterior displaced, T7 is R rotated, mid thoracic spine is C-curved with apex on the left, Coccyx is sidebent right , mild varus of legs. Palpation Assessment Location Two Palpation Location Coccyx Palpation Findings Tenderness Palpation Details L lateral side of coccyx tender. One Palpation Location L Supraspinatus muscle belly Palpation Findings Muscle Guarding Tenderness Trigger Point PT-OP-K Range of Motion Start: 04/14/18 16:14 Freq: Status: Active Protocol: Document 04/15/18 11:22 LRN (Rec: 04/15/18 16:59 LRN [id number]) Cervical Spine Range of Motion Cervical Spine Passive Percentage Rotation Left 90 Comments All other motions were WNL. Lumbar Spine Range of Motion Lumbar Spine Active Degrees Testing Position Standing Flexion 90 Extension 10 Rotation Left 40 Rotation Right 45 Lateral Flexion Left 20 Lateral Flexion Right 10 ROM Limitations Soft Tissue Tightness Bony Restriction Comments Rotation ROM is approximate. Hip Goniometric Range of Motion Hip Measured in Degrees Right Passive Testing Position Supine Internal Rotation 45 External Rotation 75 Left Passive Testing Position Supine Internal Rotation 40 External Rotation 75 PT-OP-L Special Tests Start: 04/14/18 16:14 Freq: Status: Active Protocol: Document 04/15/18 11:22 LRN (Rec: 04/15/18 16:59 LRN [id number]) Special Tests Lumbar Spine Special Tests Straight Leg Raise Test Results Negative bilaterally Shoulder Special Tests Elevation Impingement Test Results Negative Comments L shoulder PT-OP-M Strength Start: 04/14/18 16:14 Freq: Status: Active Protocol: Document 04/15/18 11:22 LRN (Rec: 04/15/18 16:59 LRN [id number]) Cervical Spine Strength Cervical Spine Manual Muscle Testing Testing Position Supine Hip Strength Hip Manual Muscle Testing Left Extension (S1) 4 Good Knee Strength Knee Manual Muscle Testing Left Flexion (S2) 4 Good Comments Generally LE strength is 5/5 bilaterally except as noted above for L hip and knee. PT-OP-Q Treatments Start: 04/14/18 16:14 Freq: Status: Active Protocol: Document 04/29/18 11:25 LRN (Rec: 04/29/18 12:30 LRN [id number]) Gym Equipment Cable Column (Body Solid) Hamstring Curl Details Seat 6 holes, w/proper sitting posture Resistance 20# Reps/Time 10x3 Therapeutic Exercises Supine Exercises Abdominal strengthening Supine Exercise Name Hands and Knees push Side bilateral Comments DC'd due to onset of tingling in R thigh. HS/LE Neural stretch Side bilateral Reps/Minutes 2' Prone Exercises Hip Extension Prone Exercise Name Leg lift Side bilateral Reps/Minutes 15x Sitting Exercises Shoulder AB/AD Sitting Exercise Name Arm swings in frontal plane Side bilateral Reps/Minutes 10x Alternate arm lifts Side bilateral Reps/Minutes 30x Rhomboid/Mid Trap strengthening Side right Reps/Minutes 10x3 Comments Exercise after stretching of Rhomboid/Mid Trap Rhomboid/Mid Trap Stretch Side left Reps/Minutes 4' UT & Lev Scap stretch Side left Reps/Minutes 2' each Standing Exercises Rhomboid/Mid Trap strengthening Standing Exercise Name Bent over row Side bilateral Resistance 2# Reps/Minutes 10x3 Lat Dorsi Standing Exercise Name End range shoulder Flex Side bilateral Resistance Lev 1 T-Band Row Side bilateral Resistance Lev 1 T-Band Reps/Minutes 10x3 Manual Therapy Treatment Soft Tissue Mobilization Supraspinatus and UT Mobilization Type Strumming Sustained Pressure Intensity/Depth Moderate Body Position Supine Low back Body Location R, then L Lumbar paraspinals and upper gluteals Mobilization Type Cross-Friction Strumming Sustained Pressure Intensity/Depth Moderate Body Position Prone Comments After exercise change of body tightness to the opposite side . Joint Mobilizations T2-T6 Direction Correction of rotations x 2 Grade III Body Position Prone Reps/Duration 15' Comments Grade II-III for Oscillations. After exercise change of body tightness to the opposite side. Sacrum Joint Sacrum Direction Correcting a L rotation, than later a R rot Body Position Prone Comments After exercise change of body tightness to the opposite side . PT-OP-R Modalities Start: 04/14/18 16:14 Freq: Status: Active Protocol: Document 04/29/18 11:25 LRN (Rec: 04/29/18 12:33 LRN [id number]) Electric Stimulation Electric Stimulation Low back Body Location Sacral level Duration (Minutes) 10 Intensity 12 Target/Sweep Sweep Patient Position Hooklying Combined With Heat/Cold Cold Pack Comments Resolution of tingling post therapy. Hot Pack/Cold Pack Treatment Cold Pack Location Low back Treatment Duration (minutes) 10 Comments Used with E-Stim. PT-OP-T Assessment and Plan Start: 04/14/18 16:14 Freq: Status: Active Protocol: Document 04/29/18 11:25 LRN (Rec: 04/29/18 12:30 LRN [id number]) Physical Therapy Assessment Assessment Summary Assessment Pt shows poor core stab with exercise; therefore onset of tingling in R LE with abdominal ex. Hip ext on R without increased discomfort (L still weak). Good tolerance to scapular strengthening with no complaints of pain/tingling. Physical Therapy Plan Frequency and Duration Frequency of Treatment 2x/Week Plan of Care Start Date 04/15/18 Plan of Care End Date 06/13/18 Next Visit Focus/Plan Next Note Type Treatment Note Next Visit Plan Cont L upper back & core strengthening followed by UB stretch. Review stretch to L hip IR, manual therapy to T/S, and if needed to L/S & Coccyx .
--- NOTE | 2018-05-01 12:17 | PT.OTN ---
Current Diagnoses Other chronic pain (05/01/18) Pain in right shoulder (05/01/18) Pain in left shoulder (05/01/18) Cervicalgia (05/01/18) Lumbago with sciatica, right side (05/01/18) Lumbago with sciatica, left side (05/01/18) Physical Therapy Treatment Note PT-OP-A Visit Information Start: 04/14/18 16:14 Freq: Status: Active Protocol: Document 05/01/18 11:21 LRN (Rec: 05/01/18 11:58 LRN [id number]) Out-Patient Physical Therapy Visit Information Visit Information Visit Type Treatment Note Visit Start Time 11:21 Visit Stop Time 12:12 Total Visit Minutes 52 Visit Number 5/ Number of LEGAL COORDINATOR Visits 0 Evaluation Information Evaluation Date 04/15/18 PT-OP-B Current Condition Start: 04/14/18 16:14 Freq: Status: Active Protocol: Document 04/15/18 11:22 LRN (Rec: 04/15/18 12:14 LRN [id number]) Current Condition History of Current Condition Onset Date 3 months ago Current Complaints L shoulder & tailbone pain and tingling, R posterior thigh pain. History of Current Condition During this past summer after yard working she started to have onset of L shoulder and tailbone pain. She reports L shoulder tingling and tingling in the tailbone and radiating pain down the posterior R thigh. She normally does yoga for exercise but hasn't been doing yoga for the past month. She restarted yoga yesterday. PMH: Mole or possible wart on the inner L ear canal, Basal Cell Carcinoma, Chronic bilateral LBP with bilateral Sciatica, L ankle fracture 2013. Prior Treatments and Tests X-ray, results unknown. Pt reports doctor told her pain is due to muscles in upper back. Pt given muscle relaxers that was helpful. Future Testing and Treatments Planned Follow up MD appt in June 2018. Treatment Goals Patient/Caregiver Goals Goal with therapy is restart exercise without increasing pain. Prior Functional Status Baseline Function- ADL's Independent Baseline Function- Mobility Independent Baseline Function- Work/School Homemaker. Baseline Function- Other Restricted with lifting heavy things, moving furniture. Ongoing Mild pain. Current Functional Impairments (Reported) Functional Limitations- ADL's Pain with ADL's slowing function. Functional Limitations- Recreation/ Restricted with exercise Hobbies program. Functional Limitations- Other Limited with lifting. Personal Factors Other Personal Factors That May Effect Prior history of LBP and Therapy/Recovery radicular R leg pain with partial resolution. Prior history of L shoulder pain with partial resolution. PT-OP-C Subjective Start: 04/14/18 16:14 Freq: Status: Active Protocol: Document 05/01/18 11:21 LRN (Rec: 05/01/18 11:58 LRN [id number]) OP-PT Subjective Patient Comments Patient Comments Took muscle relaxor yesterday before yoga and was able to garden after yoga without pain . Last night didn't have tingling in the R leg. Didn't have pain in the L shoulder this morning. PT-OP-E Functional Tests Start: 04/14/18 16:14 Freq: Status: Active Protocol: Document 04/15/18 11:22 LRN (Rec: 04/15/18 16:59 LRN [id number]) Functional Tests Apley's Scratch Test Action 1: The subject is instructed to touch the opposite shoulder with his/her hand. This motion checks Glenohumeral adduction, internal rotation , horizontal adduction and scapular protraction Action 2: The subject is instructed to place his/her arm overhead and reach behind the neck to touch his/her upper back. This motion checks Glenohumeral abduction, external rotation and scapular upward rotation and elevation. Action 3: The subject puts his/her hand on the lower back and reaches upward as far as possible. This motion checks glenohumeral adduction, internal rotation and scapular retraction with downward rotation Action 2- Left T3 Action 2- Right T3 Action 3- Left T8 Action 3- Right T9 PT-OP-F Manual Assessment Start: 04/14/18 16:14 Freq: Status: Active Protocol: Document 04/15/18 11:22 LRN (Rec: 04/15/18 16:59 LRN [id number]) Manual Assessments Soft Tissue Assessment Soft Tissue Mobility Assessment Increased tension of L side of coccyx, L lumbar paraspinals and L posterior upper back intrascapular and supraspinatus. Joint Mobility Assessment Joint Mobility Assessment Decreased in Lumbar spine for R sidebend and L rotation. PT-OP-H Neuro Start: 04/14/18 16:14 Freq: Status: Active Protocol: Document 04/15/18 11:22 LRN (Rec: 04/15/18 16:59 LRN [id number]) Sensation Evaluation Gross Sensation Gross Sensation WNL Deep Tendon Reflex & Clonus Assessment Deep Tendon Reflex Left Achilles Deep Tendon Reflex 1+ Diminished PT-OP-J Posture/Palpation/Skin Start: 04/14/18 16:14 Freq: Status: Active Protocol: Document 04/15/18 11:22 LRN (Rec: 04/15/18 16:59 LRN [id number]) Posture Evaluation Position Standing Evaluation View All positions Shoulder Posture (L) Elevated Comments Posture Comments Standing Posture: Neck is R tilted, L shoulder is elevated and retracted, moderate Dowagers hump, decreased thoracic kyphosis except T6 is posterior displaced, T7 is R rotated, mid thoracic spine is C-curved with apex on the left, Coccyx is sidebent right , mild varus of legs. Palpation Assessment Location Two Palpation Location Coccyx Palpation Findings Tenderness Palpation Details L lateral side of coccyx tender. One Palpation Location L Supraspinatus muscle belly Palpation Findings Muscle Guarding Tenderness Trigger Point PT-OP-K Range of Motion Start: 04/14/18 16:14 Freq: Status: Active Protocol: Document 04/15/18 11:22 LRN (Rec: 04/15/18 16:59 LRN [id number]) Cervical Spine Range of Motion Cervical Spine Passive Percentage Rotation Left 90 Comments All other motions were WNL. Lumbar Spine Range of Motion Lumbar Spine Active Degrees Testing Position Standing Flexion 90 Extension 10 Rotation Left 40 Rotation Right 45 Lateral Flexion Left 20 Lateral Flexion Right 10 ROM Limitations Soft Tissue Tightness Bony Restriction Comments Rotation ROM is approximate. Hip Goniometric Range of Motion Hip Measured in Degrees Right Passive Testing Position Supine Internal Rotation 45 External Rotation 75 Left Passive Testing Position Supine Internal Rotation 40 External Rotation 75 PT-OP-L Special Tests Start: 04/14/18 16:14 Freq: Status: Active Protocol: Document 04/15/18 11:22 LRN (Rec: 04/15/18 16:59 LRN [id number]) Special Tests Lumbar Spine Special Tests Straight Leg Raise Test Results Negative bilaterally Shoulder Special Tests Elevation Impingement Test Results Negative Comments L shoulder PT-OP-M Strength Start: 11/12/18 16:14 Freq: Status: Active Protocol: Document 04/15/18 11:22 LRN (Rec: 04/15/18 16:59 LRN [id number]) Cervical Spine Strength Cervical Spine Manual Muscle Testing Testing Position Supine Hip Strength Hip Manual Muscle Testing Left Extension (S1) 4 Good Knee Strength Knee Manual Muscle Testing Left Flexion (S2) 4 Good Comments Generally LE strength is 5/5 bilaterally except as noted above for L hip and knee. PT-OP-Q Treatments Start: 04/14/18 16:14 Freq: Status: Active Protocol: Document 05/01/18 11:21 LRN (Rec: 05/01/18 11:58 LRN [id number]) Gym Equipment Cable Column (Body Solid) Hamstring Curl Details Seat 6 holes, w/proper sitting posture Resistance 20# Reps/Time 10x4 Therapeutic Exercises Supine Exercises Lat Pull Down Side bilateral Resistance Lev 2 T-Band Reps/Minutes 10x Stretch to Hip IR's Supine Exercise Name Piriformis stretch Side left Reps/Minutes 2' Sitting Exercises Shoulder AB/AD Sitting Exercise Name Arm swings in frontal plane Side bilateral Reps/Minutes 10x Alternate arm lifts Side bilateral Reps/Minutes 30x Rhomboid/Mid Trap strengthening Side right Reps/Minutes 10x3 Comments Exercise after stretching of Rhomboid/Mid Trap Rhomboid/Mid Trap Stretch Side left Reps/Minutes 4' Standing Exercises Lat Dorsi Standing Exercise Name End range shoulder Flex Side bilateral Resistance Lev 1 T-Band Comments V Cuing for Lumbar neutral spine positioning Row Side bilateral Resistance Lev 1 T-Band Reps/Minutes 10x4 Manual Therapy Treatment Joint Mobilizations Sacrum Joint Sacrum Direction Correcting a R rot at the TERESO Body Position Prone Self-Care/Home Management Treatment Education Patient Education Home Exercise Program Other Education I/S pt in [place] Piriformis stretch due to variable nature of her tightness. PT-OP-R Modalities Start: 04/14/18 16:14 Freq: Status: Active Protocol: Document 05/01/18 11:21 LRN (Rec: 05/01/18 12:02 LRN [id number]) Electric Stimulation Electric Stimulation Low back Body Location Sacral level Duration (Minutes) 10 Intensity 12 Target/Sweep Sweep Patient Position Hooklying Combined With Heat/Cold Cold Pack Comments Resolution of tingling post therapy. Hot Pack/Cold Pack Treatment Hot Pack Location Low back Patient Position Supine Treatment Duration (minutes) 15 Comments Used with E-Stim PT-OP-T Assessment and Plan Start: 04/14/18 16:14 Freq: Status: Active Protocol: Document 05/01/18 11:21 LRN (Rec: 05/01/18 11:58 LRN [id number]) Physical Therapy Assessment Goals Three Impairment Upper back and low back/coccyx pain Cover Cutter Machine Goal (LTG) Pt will be able to return to yoga exercise and home activities without onset of pain. (05/01/18: Pt returned to yoga and did gardening without pain onset for first time). LTG Duration 06/17/09 Assessment Summary Assessment Pt had a night without LE tingling and woke today for the 1st time without shoulder pain; possibly from medication taken (muscle relaxer, or with improvement from exercise ). Physical Therapy Plan Frequency and Duration Frequency of Treatment 2x/Week Plan of Care Start Date 04/15/18 Plan of Care End Date 06/13/18 Next Visit Focus/Plan Next Note Type Treatment Note Next Visit Plan Cont L upper back & core strengthening followed by UB stretch. Manual therapy to T/ S, and if needed to L/S & Coccyx.
--- NOTE | 2018-05-08 12:22 | PT.OTN ---
Current Diagnoses Other chronic pain (05/08/18) Pain in right shoulder (05/08/18) Pain in left shoulder (05/08/18) Cervicalgia (05/08/18) Lumbago with sciatica, right side (05/08/18) Lumbago with sciatica, left side (05/08/18) Physical Therapy Treatment Note PT-OP-A Visit Information Start: 04/14/18 16:14 Freq: Status: Active Protocol: Document 05/08/18 11:15 LRN (Rec: 05/08/18 12:18 LRN [id number]) Out-Patient Physical Therapy Visit Information Visit Information Visit Type Treatment Note Visit Start Time 11:15 Visit Stop Time 12:10 Total Visit Minutes 55 Visit Number 11/10 Number of MITTEN SEWER Visits 0 Evaluation Information Evaluation Date 04/15/18 PT-OP-B Current Condition Start: 04/14/18 16:14 Freq: Status: Active Protocol: Document 04/15/18 11:22 LRN (Rec: 04/15/18 12:14 LRN [id number]) Current Condition History of Current Condition Onset Date 3 months ago Current Complaints L shoulder & tailbone pain and tingling, R posterior thigh pain. History of Current Condition During this past summer after yard working she started to have onset of L shoulder and tailbone pain. She reports L shoulder tingling and tingling in the tailbone and radiating pain down the posterior R thigh. She normally does yoga for exercise but hasn't been doing yoga for the past month. She restarted yoga yesterday. PMH: Mole or possible wart on the inner L ear canal, Basal Cell Carcinoma, Chronic bilateral LBP with bilateral Sciatica, L ankle fracture 2013. Prior Treatments and Tests X-ray, results unknown. Pt reports doctor told her pain is due to muscles in upper back. Pt given muscle relaxers that was helpful. Future Testing and Treatments Planned Follow up MD appt in June 2018. Treatment Goals Patient/Caregiver Goals Goal with therapy is restart exercise without increasing pain. Prior Functional Status Baseline Function- ADL's Independent Baseline Function- Mobility Independent Baseline Function- Work/School Homemaker. Baseline Function- Other Restricted with lifting heavy things, moving furniture. Ongoing Mild pain. Current Functional Impairments (Reported) Functional Limitations- ADL's Pain with ADL's slowing function. Functional Limitations- Recreation/ Restricted with exercise Hobbies program. Functional Limitations- Other Limited with lifting. Personal Factors Other Personal Factors That May Effect Prior history of LBP and Therapy/Recovery radicular R leg pain with partial resolution. Prior history of L shoulder pain with partial resolution. PT-OP-C Subjective Start: 04/14/18 16:14 Freq: Status: Active Protocol: Document 05/08/18 11:15 LRN (Rec: 05/08/18 12:18 LRN [id number]) OP-PT Subjective Patient Comments Patient Comments States pain in the L shoulder and tingling in the L ankle is mostly at night. Neck muscles are tense. PT-OP-E Functional Tests Start: 04/14/18 16:14 Freq: Status: Active Protocol: Document 04/15/18 11:22 LRN (Rec: 04/15/18 16:59 LRN [id number]) Functional Tests Apley's Scratch Test Action 1: The subject is instructed to touch the opposite shoulder with his/her hand. This motion checks Glenohumeral adduction, internal rotation , horizontal adduction and scapular protraction Action 2: The subject is instructed to place his/her arm overhead and reach behind the neck to touch his/her upper back. This motion checks Glenohumeral abduction, external rotation and scapular upward rotation and elevation. Action 3: The subject puts his/her hand on the lower back and reaches upward as far as possible. This motion checks glenohumeral adduction, internal rotation and scapular retraction with downward rotation Action 2- Left T3 Action 2- Right T3 Action 3- Left T8 Action 3- Right T9 PT-OP-F Manual Assessment Start: 04/14/18 16:14 Freq: Status: Active Protocol: Document 04/15/18 11:22 LRN (Rec: 04/15/18 16:59 LRN [id number]) Manual Assessments Soft Tissue Assessment Soft Tissue Mobility Assessment Increased tension of L side of coccyx, L lumbar paraspinals and L posterior upper back intrascapular and supraspinatus. Joint Mobility Assessment Joint Mobility Assessment Decreased in Lumbar spine for R sidebend and L rotation. PT-OP-H Neuro Start: 04/14/18 16:14 Freq: Status: Active Protocol: Document 04/15/18 11:22 LRN (Rec: 04/15/18 16:59 LRN [id number]) Sensation Evaluation Gross Sensation Gross Sensation WNL Deep Tendon Reflex & Clonus Assessment Deep Tendon Reflex Left Achilles Deep Tendon Reflex 1+ Diminished PT-OP-J Posture/Palpation/Skin Start: 04/14/18 16:14 Freq: Status: Active Protocol: Document 04/15/18 11:22 LRN (Rec: 04/15/18 16:59 LRN [id number]) Posture Evaluation Position Standing Evaluation View All positions Shoulder Posture (L) Elevated Comments Posture Comments Standing Posture: Neck is R tilted, L shoulder is elevated and retracted, moderate Dowagers hump, decreased thoracic kyphosis except T6 is posterior displaced, T7 is R rotated, mid thoracic spine is C-curved with apex on the left, Coccyx is sidebent right , mild varus of legs. Palpation Assessment Location Two Palpation Location Coccyx Palpation Findings Tenderness Palpation Details L lateral side of coccyx tender. One Palpation Location L Supraspinatus muscle belly Palpation Findings Muscle Guarding Tenderness Trigger Point PT-OP-K Range of Motion Start: 04/14/18 16:14 Freq: Status: Active Protocol: Document 04/15/18 11:22 LRN (Rec: 04/15/18 16:59 LRN [id number]) Cervical Spine Range of Motion Cervical Spine Passive Percentage Rotation Left 90 Comments All other motions were WNL. Lumbar Spine Range of Motion Lumbar Spine Active Degrees Testing Position Standing Flexion 90 Extension 10 Rotation Left 40 Rotation Right 45 Lateral Flexion Left 20 Lateral Flexion Right 10 ROM Limitations Soft Tissue Tightness Bony Restriction Comments Rotation ROM is approximate. Hip Goniometric Range of Motion Hip Measured in Degrees Right Passive Testing Position Supine Internal Rotation 45 External Rotation 75 Left Passive Testing Position Supine Internal Rotation 40 External Rotation 75 PT-OP-L Special Tests Start: 04/14/18 16:14 Freq: Status: Active Protocol: Document 04/15/18 11:22 LRN (Rec: 04/15/18 16:59 LRN [id number]) Special Tests Lumbar Spine Special Tests Straight Leg Raise Test Results Negative bilaterally Shoulder Special Tests Elevation Impingement Test Results Negative Comments L shoulder PT-OP-M Strength Start: 04/14/18 16:14 Freq: Status: Active Protocol: Document 04/15/18 11:22 LRN (Rec: 04/15/18 16:59 LRN [id number]) Cervical Spine Strength Cervical Spine Manual Muscle Testing Testing Position Supine Hip Strength Hip Manual Muscle Testing Left Extension (S1) 4 Good Knee Strength Knee Manual Muscle Testing Left Flexion (S2) 4 Good Comments Generally LE strength is 5/5 bilaterally except as noted above for L hip and knee. PT-OP-Q Treatments Start: 04/14/18 16:14 Freq: Status: Active Protocol: Document 05/08/18 11:15 LRN (Rec: 05/08/18 12:18 LRN [id number]) Cardio Equipment Bicycle (Upright) Duration (Minutes) 8 Resistance 3 Seat Position Min Other With: Shoulder rolls, L Middle Trap/Rhomboid stretch Gym Equipment Cable Column (Body Solid) Knee Extension Details Seat 6 holes, w/proper sitting posture Resistance 10# Reps/Time 10x3 Hamstring Curl Details Seat 6 holes, w/proper sitting posture Resistance 20# Reps/Time 10x4 Therapeutic Exercises Supine Exercises Shoulder AB/AD Supine Exercise Name Chris arm swings Side bilateral Reps/Minutes 15x2 Sitting Exercises Alternate arm lifts Side bilateral Reps/Minutes 10x2 Comments Pt complained of temporary tingling in R upper lip and lateral mouth C/S & Shoulders AROM Side bilateral Rhomboid/Mid Trap Stretch Side left Reps/Minutes 4' Standing Exercises Lat Dorsi Standing Exercise Name End range shoulder Flex Side bilateral Resistance Lev 1 T-Band Comments V Cuing for Lumbar neutral spine positioning Row Side bilateral Resistance Lev 2 T-Band Reps/Minutes 10x3 Manual Therapy Treatment Joint Mobilizations Sacrum Joint Sacrum Direction Correcting a L rot at the TERESO Body Position Prone PT-OP-R Modalities Start: 04/14/18 16:14 Freq: Status: Active Protocol: Document 05/08/18 11:15 LRN (Rec: 05/08/18 12:18 LRN [id number]) Electric Stimulation Electric Stimulation Low back Body Location Sacral level Duration (Minutes) 10 Intensity 25 Target/Sweep Sweep Patient Position Hooklying Combined With Heat/Cold Hot Pack Hot Pack/Cold Pack Treatment Cold Pack Location Low back Treatment Duration (minutes) 10 Comments Used with E-Stim. PT-OP-T Assessment and Plan Start: 04/14/18 16:14 Freq: Status: Active Protocol: Document 05/08/18 11:15 LRN (Rec: 05/08/18 12:18 LRN [id number]) Physical Therapy Assessment Goals Three Impairment Upper back and low back/coccyx pain Intermediate Goal (LTG) Pt will be able to return to yoga exercise and home activities without onset of pain. (05/01/18: Pt returned to yoga and did gardening without pain onset for first time). LTG Duration 06/17/09 Two Impairment L shoulder pain limiting ability to sleep Convention Services Manager Goal (LTG) Pt will be able to improve ability to sleep at night without being limited by pain. LTG Duration 05/17/18 (05/08/18: One time able to sleep without L shoulder pain. One Impairment Lacks appropriate HEP Intermediate Goal (LTG) Pt will be independent in HEP self care exercises. LTG Duration 06/17/09 Assessment Summary Assessment No tingling anywhere last night, the night before had tingling in the L medial ankle . Has L shoulder pain at night but had no shoulder pain upon waking. C/O intermittent tingling under the nose and lateral R mouth. Physical Therapy Plan Frequency and Duration Frequency of Treatment 2x/Week Plan of Care Start Date 04/15/18 Plan of Care End Date 06/13/18 Next Visit Focus/Plan Next Note Type Treatment Note Next Visit Plan Recheck progress with pain goals. Progress upper back and core strengthening. Manual therapy to L/S & coccyx as needed.
--- NOTE | 2018-05-13 16:06 | PT.OTN ---
Current Diagnoses Other chronic pain (05/13/18) Pain in right shoulder (05/13/18) Pain in left shoulder (05/13/18) Cervicalgia (05/13/18) Lumbago with sciatica, right side (05/13/18) Lumbago with sciatica, left side (05/13/18) Physical Therapy Treatment Note PT-OP-A Visit Information Start: 04/14/18 16:14 Freq: Status: Active Protocol: Document 05/13/18 11:20 LRN (Rec: 05/13/18 12:45 LRN [id number]) Out-Patient Physical Therapy Visit Information Visit Information Visit Type Treatment Note Visit Start Time 11:20 Visit Stop Time 12:10 Visit Number 12/10 Number of BLACKING MACHINE OPERATOR Visits 0 Evaluation Information Evaluation Date 04/15/18 PT-OP-B Current Condition Start: 04/14/18 16:14 Freq: Status: Active Protocol: Document 04/15/18 11:22 LRN (Rec: 04/15/18 12:14 LRN [id number]) Current Condition History of Current Condition Onset Date 3 months ago Current Complaints L shoulder & tailbone pain and tingling, R posterior thigh pain. History of Current Condition During this past summer after yard working she started to have onset of L shoulder and tailbone pain. She reports L shoulder tingling and tingling in the tailbone and radiating pain down the posterior R thigh. She normally does yoga for exercise but hasn't been doing yoga for the past month. She restarted yoga yesterday. PMH: Mole or possible wart on the inner L ear canal, Basal Cell Carcinoma, Chronic bilateral LBP with bilateral Sciatica, L ankle fracture 2013. Prior Treatments and Tests X-ray, results unknown. Pt reports doctor told her pain is due to muscles in upper back. Pt given muscle relaxers that was helpful. Future Testing and Treatments Planned Follow up MD appt in June 2018. Treatment Goals Patient/Caregiver Goals Goal with therapy is restart exercise without increasing pain. Prior Functional Status Baseline Function- ADL's Independent Baseline Function- Mobility Independent Baseline Function- Work/School Homemaker. Baseline Function- Other Restricted with lifting heavy things, moving furniture. Ongoing Mild pain. Current Functional Impairments (Reported) Functional Limitations- ADL's Pain with ADL's slowing function. Functional Limitations- Recreation/ Restricted with exercise Hobbies program. Functional Limitations- Other Limited with lifting. Personal Factors Other Personal Factors That May Effect Prior history of LBP and Therapy/Recovery radicular R leg pain with partial resolution. Prior history of L shoulder pain with partial resolution. PT-OP-C Subjective Start: 04/14/18 16:14 Freq: Status: Active Protocol: Document 05/13/18 11:20 LRN (Rec: 05/13/18 12:45 LRN [id number]) OP-PT Subjective Patient Comments Patient Comments States she has had pain in the R posterior leg and tingling in the L shoulder. PT-OP-E Functional Tests Start: 04/14/18 16:14 Freq: Status: Active Protocol: Document 04/15/18 11:22 LRN (Rec: 04/15/18 16:59 LRN [id number]) Functional Tests Apley's Scratch Test Action 1: The subject is instructed to touch the opposite shoulder with his/her hand. This motion checks Glenohumeral adduction, internal rotation , horizontal adduction and scapular protraction Action 2: The subject is instructed to place his/her arm overhead and reach behind the neck to touch his/her upper back. This motion checks Glenohumeral abduction, external rotation and scapular upward rotation and elevation. Action 3: The subject puts his/her hand on the lower back and reaches upward as far as possible. This motion checks glenohumeral adduction, internal rotation and scapular retraction with downward rotation Action 2- Left T3 Action 2- Right T3 Action 3- Left T8 Action 3- Right T9 PT-OP-F Manual Assessment Start: 04/14/18 16:14 Freq: Status: Active Protocol: Document 04/15/18 11:22 LRN (Rec: 04/15/18 16:59 LRN [id number]) Manual Assessments Soft Tissue Assessment Soft Tissue Mobility Assessment Increased tension of L side of coccyx, L lumbar paraspinals and L posterior upper back intrascapular and supraspinatus. Joint Mobility Assessment Joint Mobility Assessment Decreased in Lumbar spine for R sidebend and L rotation. PT-OP-H Neuro Start: 04/14/18 16:14 Freq: Status: Active Protocol: Document 04/15/18 11:22 LRN (Rec: 04/15/18 16:59 LRN [id number]) Sensation Evaluation Gross Sensation Gross Sensation WNL Deep Tendon Reflex & Clonus Assessment Deep Tendon Reflex Left Achilles Deep Tendon Reflex 1+ Diminished PT-OP-J Posture/Palpation/Skin Start: 04/14/18 16:14 Freq: Status: Active Protocol: Document 04/15/18 11:22 LRN (Rec: 04/15/18 16:59 LRN [id number]) Posture Evaluation Position Standing Evaluation View All positions Shoulder Posture (L) Elevated Comments Posture Comments Standing Posture: Neck is R tilted, L shoulder is elevated and retracted, moderate Dowagers hump, decreased thoracic kyphosis except T6 is posterior displaced, T7 is R rotated, mid thoracic spine is C-curved with apex on the left, Coccyx is sidebent right , mild varus of legs. Palpation Assessment Location Two Palpation Location Coccyx Palpation Findings Tenderness Palpation Details L lateral side of coccyx tender. One Palpation Location L Supraspinatus muscle belly Palpation Findings Muscle Guarding Tenderness Trigger Point PT-OP-K Range of Motion Start: 04/14/18 16:14 Freq: Status: Active Protocol: Document 04/15/18 11:22 LRN (Rec: 04/15/18 16:59 LRN [id number]) Cervical Spine Range of Motion Cervical Spine Passive Percentage Rotation Left 90 Comments All other motions were WNL. Lumbar Spine Range of Motion Lumbar Spine Active Degrees Testing Position Standing Flexion 90 Extension 10 Rotation Left 40 Rotation Right 45 Lateral Flexion Left 20 Lateral Flexion Right 10 ROM Limitations Soft Tissue Tightness Bony Restriction Comments Rotation ROM is approximate. Hip Goniometric Range of Motion Hip Measured in Degrees Right Passive Testing Position Supine Internal Rotation 45 External Rotation 75 Left Passive Testing Position Supine Internal Rotation 40 External Rotation 75 PT-OP-L Special Tests Start: 04/14/18 16:14 Freq: Status: Active Protocol: Document 04/15/18 11:22 LRN (Rec: 04/15/18 16:59 LRN [id number]) Special Tests Lumbar Spine Special Tests Straight Leg Raise Test Results Negative bilaterally Shoulder Special Tests Elevation Impingement Test Results Negative Comments L shoulder PT-OP-M Strength Start: 04/14/18 16:14 Freq: Status: Active Protocol: Document 04/15/18 11:22 LRN (Rec: 04/15/18 16:59 LRN [id number]) Cervical Spine Strength Cervical Spine Manual Muscle Testing Testing Position Supine Hip Strength Hip Manual Muscle Testing Left Extension (S1) 4 Good Knee Strength Knee Manual Muscle Testing Left Flexion (S2) 4 Good Comments Generally LE strength is 5/5 bilaterally except as noted above for L hip and knee. PT-OP-Q Treatments Start: 04/14/18 16:14 Freq: Status: Active Protocol: Document 05/13/18 11:20 LRN (Rec: 05/13/18 12:45 LRN [id number]) Cardio Equipment Bicycle (Upright) Duration (Minutes) 8 Resistance 3 Seat Position Min Other With: Shoulder rolls, L Middle Trap/Rhomboid stretch Therapeutic Exercises Supine Exercises Stretch to Hip IR's Supine Exercise Name Piriformis stretch Side left Reps/Minutes 3' Sitting Exercises Rhomboid/Mid Trap strengthening Side right Reps/Minutes 10x3 Comments Exercise after stretching of Rhomboid/Mid Trap Rhomboid/Mid Trap Stretch Side left Reps/Minutes 4' Manual Therapy Treatment Soft Tissue Mobilization Low back Body Location R, then L Lumbar paraspinals and upper gluteals Mobilization Type Cross-Friction Strumming Sustained Pressure Intensity/Depth Moderate Body Position Prone Comments After exercise change of body tightness to the opposite side . Joint Mobilizations T2-T6 Direction T4-T12 Correction of rotations Grade III Body Position Prone Reps/Duration 20' Comments Grade II-III for Oscillations. After exercise change of body tightness to the opposite side. Sacrum Joint Sacrum Direction Correcting a L rot at the TERESO Body Position Prone Coccyx Joint Coccyx Direction Correcting a L rotation Grade III Body Position Prone Comments Oscillations. PT-OP-R Modalities Start: 04/14/18 16:14 Freq: Status: Active Protocol: Document 05/13/18 11:20 LRN (Rec: 05/13/18 12:45 LRN [id number]) Electric Stimulation Electric Stimulation Low back Body Location Sacral level Duration (Minutes) 10 Target/Sweep Sweep Patient Position Hooklying Combined With Heat/Cold Hot Pack Hot Pack/Cold Pack Treatment Hot Pack Location Low back Patient Position Supine Treatment Duration (minutes) 10 Comments Used with E-Stim PT-OP-T Assessment and Plan Start: 04/14/18 16:14 Freq: Status: Active Protocol: Document 05/13/18 11:20 LRN (Rec: 05/13/18 12:45 LRN [id number]) Physical Therapy Assessment Assessment Summary Assessment Pt is having more onset of discomfort in the R LE and tingling of L shoulder. Tingling in upper back decreased with derotation of the lower thoracic spine. Pt noted tingling in the nose after manual therapy to the upper back (no therapy given to cervical spine). Physical Therapy Plan Frequency and Duration Frequency of Treatment 2x/Week Plan of Care Start Date 04/15/18 Plan of Care End Date 06/13/18 Next Visit Focus/Plan Next Note Type Treatment Note Next Visit Plan Progress upper back and core strengthening. Manual therapy to L/S & coccyx as needed.
--- NOTE | 2018-06-10 15:55 | PT.OTN ---
Current Diagnoses Other chronic pain (06/10/18) Pain in right shoulder (06/10/18) Pain in left shoulder (06/10/18) Cervicalgia (06/10/18) Lumbago with sciatica, right side (06/10/18) Lumbago with sciatica, left side (06/10/18) Physical Therapy Treatment Note PT-OP-A Visit Information Start: 04/14/18 16:14 Freq: Status: Active Protocol: Document 06/10/18 10:36 LRN (Rec: 06/10/18 11:18 LRN [id number]) Out-Patient Physical Therapy Visit Information Visit Information Visit Type Treatment Note Visit Start Time 10:36 Visit Stop Time 11:30 Total Visit Minutes 54 Visit Number 02/10 Number of MARKET SPECIALIST Visits 0 Evaluation Information Evaluation Date 04/15/18 PT-OP-B Current Condition Start: 04/14/18 16:14 Freq: Status: Active Protocol: Document 04/15/18 11:22 LRN (Rec: 04/15/18 12:14 LRN [id number]) Current Condition History of Current Condition Onset Date 3 months ago Current Complaints L shoulder & tailbone pain and tingling, R posterior thigh pain. History of Current Condition During this past summer after yard working she started to have onset of L shoulder and tailbone pain. She reports L shoulder tingling and tingling in the tailbone and radiating pain down the posterior R thigh. She normally does yoga for exercise but hasn't been doing yoga for the past month. She restarted yoga yesterday. PMH: Mole or possible wart on the inner L ear canal, Basal Cell Carcinoma, Chronic bilateral LBP with bilateral Sciatica, L ankle fracture 2013. Prior Treatments and Tests X-ray, results unknown. Pt reports doctor told her pain is due to muscles in upper back. Pt given muscle relaxers that was helpful. Future Testing and Treatments Planned Follow up MD appt in June 2018. Treatment Goals Patient/Caregiver Goals Goal with therapy is restart exercise without increasing pain. Prior Functional Status Baseline Function- ADL's Independent Baseline Function- Mobility Independent Baseline Function- Work/School Homemaker. Baseline Function- Other Restricted with lifting heavy things, moving furniture. Ongoing Mild pain. Current Functional Impairments (Reported) Functional Limitations- ADL's Pain with ADL's slowing function. Functional Limitations- Recreation/ Restricted with exercise Hobbies program. Functional Limitations- Other Limited with lifting. Personal Factors Other Personal Factors That May Effect Prior history of LBP and Therapy/Recovery radicular R leg pain with partial resolution. Prior history of L shoulder pain with partial resolution. PT-OP-C Subjective Start: 04/14/18 16:14 Freq: Status: Active Protocol: Document 06/10/18 10:36 LRN (Rec: 06/10/18 11:18 LRN [id number]) OP-PT Subjective Patient Comments Patient Comments States over the holidays her back has felt good but she didn't do yoga. States she did yoga today and feels good. only thing is that I have a little pain in the upper shoulder (left). States she has tingling in the L shoulder sometimes with sleeping. Patient Reported Progress Improving Patient Questionnaires Lower Extremity Functional Scale LEFS Score 74 LEFS Impairment 1 to 19% Impaired (Score 63-79 ) Quick Dash- Upper Extremity Quick Dash UE Score 19 Quick Dash UE Impairment 1 to 19% Impaired (Score 1-19) PT-OP-E Functional Tests Start: 04/14/18 16:14 Freq: Status: Active Protocol: Document 04/15/18 11:22 LRN (Rec: 04/15/18 16:59 LRN [id number]) Functional Tests Apley's Scratch Test Action 1: The subject is instructed to touch the opposite shoulder with his/her hand. This motion checks Glenohumeral adduction, internal rotation , horizontal adduction and scapular protraction Action 2: The subject is instructed to place his/her arm overhead and reach behind the neck to touch his/her upper back. This motion checks Glenohumeral abduction, external rotation and scapular upward rotation and elevation. Action 3: The subject puts his/her hand on the lower back and reaches upward as far as possible. This motion checks glenohumeral adduction, internal rotation and scapular retraction with downward rotation Action 2- Left T3 Action 2- Right T3 Action 3- Left T8 Action 3- Right T9 PT-OP-F Manual Assessment Start: 04/14/18 16:14 Freq: Status: Active Protocol: Document 04/15/18 11:22 LRN (Rec: 04/15/18 16:59 LRN [id number]) Manual Assessments Soft Tissue Assessment Soft Tissue Mobility Assessment Increased tension of L side of coccyx, L lumbar paraspinals and L posterior upper back intrascapular and supraspinatus. Joint Mobility Assessment Joint Mobility Assessment Decreased in Lumbar spine for R sidebend and L rotation. PT-OP-H Neuro Start: 04/14/18 16:14 Freq: Status: Active Protocol: Document 04/15/18 11:22 LRN (Rec: 04/15/18 16:59 LRN [id number]) Sensation Evaluation Gross Sensation Gross Sensation WNL Deep Tendon Reflex & Clonus Assessment Deep Tendon Reflex Left Achilles Deep Tendon Reflex 1+ Diminished PT-OP-J Posture/Palpation/Skin Start: 04/14/18 16:14 Freq: Status: Active Protocol: Document 04/15/18 11:22 LRN (Rec: 04/15/18 16:59 LRN [id number]) Posture Evaluation Position Standing Evaluation View All positions Shoulder Posture (L) Elevated Comments Posture Comments Standing Posture: Neck is R tilted, L shoulder is elevated and retracted, moderate Dowagers hump, decreased thoracic kyphosis except T6 is posterior displaced, T7 is R rotated, mid thoracic spine is C-curved with apex on the left, Coccyx is sidebent right , mild varus of legs. Palpation Assessment Location Two Palpation Location Coccyx Palpation Findings Tenderness Palpation Details L lateral side of coccyx tender. One Palpation Location L Supraspinatus muscle belly Palpation Findings Muscle Guarding Tenderness Trigger Point PT-OP-K Range of Motion Start: 04/14/18 16:14 Freq: Status: Active Protocol: Document 04/15/18 11:22 LRN (Rec: 04/15/18 16:59 LRN [id number]) Cervical Spine Range of Motion Cervical Spine Passive Percentage Rotation Left 90 Comments All other motions were WNL. Lumbar Spine Range of Motion Lumbar Spine Active Degrees Testing Position Standing Flexion 90 Extension 10 Rotation Left 40 Rotation Right 45 Lateral Flexion Left 20 Lateral Flexion Right 10 ROM Limitations Soft Tissue Tightness Bony Restriction Comments Rotation ROM is approximate. Hip Goniometric Range of Motion Hip Measured in Degrees Right Passive Testing Position Supine Internal Rotation 45 External Rotation 75 Left Passive Testing Position Supine Internal Rotation 40 External Rotation 75 PT-OP-L Special Tests Start: 04/14/18 16:14 Freq: Status: Active Protocol: Document 04/15/18 11:22 LRN (Rec: 04/15/18 16:59 LRN [id number]) Special Tests Lumbar Spine Special Tests Straight Leg Raise Test Results Negative bilaterally Shoulder Special Tests Elevation Impingement Test Results Negative Comments L shoulder PT-OP-M Strength Start: 04/14/18 16:14 Freq: Status: Active Protocol: Document 04/15/18 11:22 LRN (Rec: 04/15/18 16:59 LRN [id number]) Cervical Spine Strength Cervical Spine Manual Muscle Testing Testing Position Supine Hip Strength Hip Manual Muscle Testing Left Extension (S1) 4 Good Knee Strength Knee Manual Muscle Testing Left Flexion (S2) 4 Good Comments Generally LE strength is 5/5 bilaterally except as noted above for L hip and knee. PT-OP-Q Treatments Start: 04/14/18 16:14 Freq: Status: Active Protocol: Document 06/10/18 10:36 LRN (Rec: 06/10/18 11:18 LRN [id number]) Cardio Equipment Bicycle (Upright) Duration (Minutes) 10 Resistance 3 Seat Position Min Other With: Shoulder rolls, L Middle Trap/Rhomboid stretch Therapeutic Exercises Supine Exercises Deep Cervical Neck Flexors Supine Exercise Name Isometric Side bilateral Reps/Minutes 8' Comments Extra time needed for training . Lat Pull Down Side bilateral Resistance Lev 2 T-Band Reps/Minutes 10x3 Manual Therapy Treatment Soft Tissue Mobilization Supraspinatus and UT Body Location Left side Mobilization Type Strumming Sustained Pressure Intensity/Depth Moderate Body Position Supine Manual Traction Cervical traction Details ~15 deg's flex Body Position Hooklying Comments Resolution of tingling in L upper trapezius. PT-OP-R Modalities Start: 04/14/18 16:14 Freq: Status: Active Protocol: Document 06/10/18 10:36 LRN (Rec: 06/10/18 15:33 LRN [id number]) Electric Stimulation Electric Stimulation Neck/upper back Body Location Neck>Midback Duration (Minutes) 15 Target/Sweep Sweep Patient Position Hooklying Combined With Heat/Cold Hot Pack PT-OP-T Assessment and Plan Start: 04/14/18 16:14 Freq: Status: Active Protocol: Document 06/10/18 10:36 LRN (Rec: 06/10/18 11:18 LRN [id number]) Physical Therapy Assessment Rehab Potential Rehabilitation Potential Excellent Impairments Impairments Activity Tolerance ROM Soft Tissue Mobility Strength Other Concerns Age Related Concerns > 65 years old. Barriers to Rehabilitation History of Basal cell carcinoma limiting use of modality. Goals Three Impairment Upper back and low back/coccyx pain Penitentiary Goal (LTG) Pt will be able to return to yoga exercise and home activities without onset of pain. (05/01/18: Pt returned to yoga and did gardening without pain onset for first time). LTG Duration 06/17/09 Two Impairment L shoulder pain limiting ability to sleep [employer] Maker Goal (LTG) Pt will be able to improve ability to sleep at night without being limited by pain. LTG Duration 07/25/18 One Impairment Lacks appropriate HEP Penitentiary Goal (LTG) Pt will be independent in HEP self care exercises. LTG Duration 07/25/18 Progress Towards Goals Progress Towards Goals Progressing Toward Goals Progress Comments Goal #3 Met but pt occasionally reports onset of LE/LE tingling. Goal #2 Partially met. She has no pain but onset of tingling during the night. Goal #1 Progressing as change in HEP is needed. Assessment Summary Assessment The pt has been painfree in the low back for the past 2 weeks during the holidays, although she had not been doing yoga. She did return today without onset of pain. She has intermittent tingling in the L upper trapezius now at nighttime with sleeping and not during the day. She was educated today on how to manage the tingling in the shoulder at nighttime; therefore the pt would benefit from further training to manage her nighttime discomfort and for further stabilization of her core. Physical Therapy Plan Frequency and Duration Frequency of Treatment 2x/Week Plan of Care Start Date 04/15/18 Plan of Care End Date 07/25/18 Therapeutic Interventions Therapeutic Interventions Home Exercise Program Joint Mobilizations Manual Therapy Neuromuscular Re-education Patient/Caregiver Education Self-Care/Home Management Soft Tissue Mobilization Therapeutic Exercises Modalities Cold Pack/Ice Massage Electric Stimulation Hot Packs Next Visit Focus/Plan Next Note Type Treatment Note Next Visit Plan Progress upper back, core and neck strengthening. Manual therapy to L/S & coccyx as needed. End E-Stim/CP or MHP.
--- NOTE | 2018-06-10 15:56 | PT.OPPOC ---
Current Diagnoses Other chronic pain (06/10/18) Pain in right shoulder (06/10/18) Pain in left shoulder (06/10/18) Cervicalgia (06/10/18) Lumbago with sciatica, right side (06/10/18) Lumbago with sciatica, left side (06/10/18) Provider Visit Care Team Role Provider Type Marilyn Clifton MD Attending Provider Non-Staff Primary Care Provider Specialty: Medical Address: [address] [place] [address], [phone] Email: Plan Of Care PT-OP-T Assessment and Plan Start: 04/14/18 16:14 Freq: Status: Active Protocol: Document 06/10/18 10:36 LRN (Rec: 06/10/18 11:18 LRN [id number]) Physical Therapy Assessment Rehab Potential Rehabilitation Potential Excellent Impairments Impairments Activity Tolerance ROM Soft Tissue Mobility Strength Other Concerns Age Related Concerns > 65 years old. Barriers to Rehabilitation History of Basal cell carcinoma limiting use of modality. Goals Three Impairment Upper back and low back/coccyx pain Snf Goal (LTG) Pt will be able to return to yoga exercise and home activities without onset of pain. (05/01/18: Pt returned to yoga and did gardening without pain onset for first time). LTG Duration 06/17/09 Two Impairment L shoulder pain limiting ability to sleep Snf Goal (LTG) Pt will be able to improve ability to sleep at night without being limited by pain. LTG Duration 07/25/18 One Impairment Lacks appropriate HEP Snf Goal (LTG) Pt will be independent in HEP self care exercises. LTG Duration 07/25/18 Progress Towards Goals Progress Towards Goals Progressing Toward Goals Progress Comments Goal #3 Met but pt occasionally reports onset of LE/LE tingling. Goal #2 Partially met. She has no pain but onset of tingling during the night. Goal #1 Progressing as change in HEP is needed. Assessment Summary Assessment The pt has been painfree in the low back for the past 2 weeks during the holidays, although she had not been doing yoga. She did return today without onset of pain. She has intermittent tingling in the L upper trapezius now at nighttime with sleeping and not during the day. She was educated today on how to manage the tingling in the shoulder at nighttime; therefore the pt would benefit from further training to manage her nighttime discomfort and for further stabilization of her core. Physical Therapy Plan Frequency and Duration Frequency of Treatment 2x/Week Plan of Care Start Date 04/15/18 Plan of Care End Date 07/25/18 Therapeutic Interventions Therapeutic Interventions Home Exercise Program Joint Mobilizations Manual Therapy Neuromuscular Re-education Patient/Caregiver Education Self-Care/Home Management Soft Tissue Mobilization Therapeutic Exercises Modalities Cold Pack/Ice Massage Electric Stimulation Hot Packs Next Visit Focus/Plan Next Note Type Treatment Note Next Visit Plan Progress upper back, core and neck strengthening. Manual therapy to L/S & coccyx as needed. End E-Stim/CP or MHP. Plan of Care Dates Plan of Care Start Date 04/15/18 Plan of Care End Date 07/25/18 Please Sign and Return: I have reviewed this Plan of Care and certify that the skilled therapy services above are required to meet the patient?s needs. Physician Signature Date Printed Name and Credentials Clinical Instructor Signature Printed Name and Credentials
--- NOTE | 2018-06-12 15:37 | PT.OTN ---
Current Diagnoses Other chronic pain (06/12/18) Pain in right shoulder (06/12/18) Pain in left shoulder (06/12/18) Cervicalgia (06/12/18) Lumbago with sciatica, right side (06/12/18) Lumbago with sciatica, left side (06/12/18) Physical Therapy Treatment Note PT-OP-A Visit Information Start: 04/14/18 16:14 Freq: Status: Active Protocol: Document 06/12/18 10:35 LRN (Rec: 06/12/18 11:23 LRN [id number]) Out-Patient Physical Therapy Visit Information Visit Information Visit Type Treatment Note Visit Start Time 10:35 Visit Stop Time 11:28 Total Visit Minutes 53 Visit Number 03/22 Number of BELL MAKER Visits 0 Evaluation Information Evaluation Date 04/15/18 PT-OP-B Current Condition Start: 04/14/18 16:14 Freq: Status: Active Protocol: Document 04/15/18 11:22 LRN (Rec: 04/15/18 12:14 LRN [id number]) Current Condition History of Current Condition Onset Date 3 months ago Current Complaints L shoulder & tailbone pain and tingling, R posterior thigh pain. History of Current Condition During this past summer after yard working she started to have onset of L shoulder and tailbone pain. She reports L shoulder tingling and tingling in the tailbone and radiating pain down the posterior R thigh. She normally does yoga for exercise but hasn't been doing yoga for the past month. She restarted yoga yesterday. PMH: Mole or possible wart on the inner L ear canal, Basal Cell Carcinoma, Chronic bilateral LBP with bilateral Sciatica, L ankle fracture 2013. Prior Treatments and Tests X-ray, results unknown. Pt reports doctor told her pain is due to muscles in upper back. Pt given muscle relaxers that was helpful. Future Testing and Treatments Planned Follow up MD appt in June 2018. Treatment Goals Patient/Caregiver Goals Goal with therapy is restart exercise without increasing pain. Prior Functional Status Baseline Function- ADL's Independent Baseline Function- Mobility Independent Baseline Function- Work/School Homemaker. Baseline Function- Other Restricted with lifting heavy things, moving furniture. Ongoing Mild pain. Current Functional Impairments (Reported) Functional Limitations- ADL's Pain with ADL's slowing function. Functional Limitations- Recreation/ Restricted with exercise Hobbies program. Functional Limitations- Other Limited with lifting. Personal Factors Other Personal Factors That May Effect Prior history of LBP and Therapy/Recovery radicular R leg pain with partial resolution. Prior history of L shoulder pain with partial resolution. PT-OP-C Subjective Start: 04/14/18 16:14 Freq: Status: Active Protocol: Document 06/10/18 10:36 LRN (Rec: 06/10/18 11:18 LRN [id number]) OP-PT Subjective Patient Comments Patient Comments States over the holidays her back has felt good but she didn't do yoga. States she did yoga today and feels good. only thing is that I have a little pain in the upper shoulder (left). States she has tingling in the L shoulder sometimes with sleeping. Patient Reported Progress Improving Patient Questionnaires Lower Extremity Functional Scale LEFS Score 74 LEFS Impairment 1 to 19% Impaired (Score 63-79 ) Quick Dash- Upper Extremity Quick Dash UE Score 19 Quick Dash UE Impairment 1 to 19% Impaired (Score 1-19) PT-OP-E Functional Tests Start: 04/14/18 16:14 Freq: Status: Active Protocol: Document 04/15/18 11:22 LRN (Rec: 04/15/18 16:59 LRN [id number]) Functional Tests Apley's Scratch Test Action 1: The subject is instructed to touch the opposite shoulder with his/her hand. This motion checks Glenohumeral adduction, internal rotation , horizontal adduction and scapular protraction Action 2: The subject is instructed to place his/her arm overhead and reach behind the neck to touch his/her upper back. This motion checks Glenohumeral abduction, external rotation and scapular upward rotation and elevation. Action 3: The subject puts his/her hand on the lower back and reaches upward as far as possible. This motion checks glenohumeral adduction, internal rotation and scapular retraction with downward rotation Action 2- Left T3 Action 2- Right T3 Action 3- Left T8 Action 3- Right T9 PT-OP-F Manual Assessment Start: 04/14/18 16:14 Freq: Status: Active Protocol: Document 04/15/18 11:22 LRN (Rec: 04/15/18 16:59 LRN [id number]) Manual Assessments Soft Tissue Assessment Soft Tissue Mobility Assessment Increased tension of L side of coccyx, L lumbar paraspinals and L posterior upper back intrascapular and supraspinatus. Joint Mobility Assessment Joint Mobility Assessment Decreased in Lumbar spine for R sidebend and L rotation. PT-OP-H Neuro Start: 04/14/18 16:14 Freq: Status: Active Protocol: Document 04/15/18 11:22 LRN (Rec: 04/15/18 16:59 LRN [id number]) Sensation Evaluation Gross Sensation Gross Sensation WNL Deep Tendon Reflex & Clonus Assessment Deep Tendon Reflex Left Achilles Deep Tendon Reflex 1+ Diminished PT-OP-J Posture/Palpation/Skin Start: 04/14/18 16:14 Freq: Status: Active Protocol: Document 04/15/18 11:22 LRN (Rec: 04/15/18 16:59 LRN [id number]) Posture Evaluation Position Standing Evaluation View All positions Shoulder Posture (L) Elevated Comments Posture Comments Standing Posture: Neck is R tilted, L shoulder is elevated and retracted, moderate Dowagers hump, decreased thoracic kyphosis except T6 is posterior displaced, T7 is R rotated, mid thoracic spine is C-curved with apex on the left, Coccyx is sidebent right , mild varus of legs. Palpation Assessment Location Two Palpation Location Coccyx Palpation Findings Tenderness Palpation Details L lateral side of coccyx tender. One Palpation Location L Supraspinatus muscle belly Palpation Findings Muscle Guarding Tenderness Trigger Point PT-OP-K Range of Motion Start: 04/14/18 16:14 Freq: Status: Active Protocol: Document 04/15/18 11:22 LRN (Rec: 04/15/18 16:59 LRN [id number]) Cervical Spine Range of Motion Cervical Spine Passive Percentage Rotation Left 90 Comments All other motions were WNL. Lumbar Spine Range of Motion Lumbar Spine Active Degrees Testing Position Standing Flexion 90 Extension 10 Rotation Left 40 Rotation Right 45 Lateral Flexion Left 20 Lateral Flexion Right 10 ROM Limitations Soft Tissue Tightness Bony Restriction Comments Rotation ROM is approximate. Hip Goniometric Range of Motion Hip Measured in Degrees Right Passive Testing Position Supine Internal Rotation 45 External Rotation 75 Left Passive Testing Position Supine Internal Rotation 40 External Rotation 75 PT-OP-L Special Tests Start: 04/14/18 16:14 Freq: Status: Active Protocol: Document 04/15/18 11:22 LRN (Rec: 04/15/18 16:59 LRN [id number]) Special Tests Lumbar Spine Special Tests Straight Leg Raise Test Results Negative bilaterally Shoulder Special Tests Elevation Impingement Test Results Negative Comments L shoulder PT-OP-M Strength Start: 04/14/18 16:14 Freq: Status: Active Protocol: Document 04/15/18 11:22 LRN (Rec: 04/15/18 16:59 LRN [id number]) Cervical Spine Strength Cervical Spine Manual Muscle Testing Testing Position Supine Hip Strength Hip Manual Muscle Testing Left Extension (S1) 4 Good Knee Strength Knee Manual Muscle Testing Left Flexion (S2) 4 Good Comments Generally LE strength is 5/5 bilaterally except as noted above for L hip and knee. PT-OP-Q Treatments Start: 04/14/18 16:14 Freq: Status: Active Protocol: Document 06/12/18 10:35 LRN (Rec: 06/12/18 11:23 LRN [id number]) Cardio Equipment Upper Body Ergometer (UBE) Duration (Minutes) 6 RPM 70 Height 4 Bicycle (Upright) Duration (Minutes) 4 Resistance 3 Seat Position Min Other With: Cervical ROM & Shoulder rolls Therapeutic Exercises Sitting Exercises Scapular Depression Sitting Exercise Name Shoulder drops Side right Comments Physical cuing needed Manual Therapy Treatment Soft Tissue Mobilization Mid back Body Location Down spine & adjacent areas Intensity/Depth Superficial > Moderate Body Position Sitting and prone Supraspinatus and UT Body Location Left side Mobilization Type Myofascial Release Strumming Sustained Pressure Body Position Prone Joint Mobilizations T2-T6 Direction T4-T6 Correction of rotations Grade III Body Position Prone Reps/Duration 10' Comments Grade II-III for Oscillations. After exercise change of body tightness to the opposite side. PT-OP-R Modalities Start: 04/14/18 16:14 Freq: Status: Active Protocol: Document 06/12/18 10:35 LRN (Rec: 06/12/18 15:16 LRN [id number]) Electric Stimulation Electric Stimulation Upper back Body Location T1>T6 Duration (Minutes) 10 Target/Sweep Sweep Patient Position Hooklying Combined With Heat/Cold Cold Pack PT-OP-T Assessment and Plan Start: 04/14/18 16:14 Freq: Status: Active Protocol: Document 06/12/18 10:35 LRN (Rec: 06/12/18 11:23 LRN [id number]) Physical Therapy Assessment Goals Three Impairment Upper back and low back/coccyx pain Intermediate Goal (LTG) Pt will be able to return to yoga exercise and home activities without onset of pain. (05/01/18: Pt returned to yoga and did gardening without pain onset for first time). LTG Duration 06/17/09 Two Impairment L shoulder pain limiting ability to sleep Intermediate Goal (LTG) Pt will be able to improve ability to sleep at night without being limited by pain. LTG Duration 07/25/18 One Impairment Lacks appropriate HEP Intermediate Goal (LTG) Pt will be independent in HEP self care exercises. LTG Duration 07/25/18 Progress Towards Goals Progress Towards Goals Progressing Toward Goals Progress Comments Goal #3 met. Goal #2 met for 2 days. Will progress HEP of stabilization as tolerated. Assessment Summary Assessment + response to MFR to upper back. Pt has decreased fascial mobility of the mid> low back left and lower on the right. Pt has not had tingling in the L shoulder for the past 2 days and has not had back pain with return to yoga this week. Physical Therapy Plan Frequency and Duration Frequency of Treatment 2x/Week Plan of Care Start Date 04/15/18 Plan of Care End Date 07/25/18 Next Visit Focus/Plan Next Note Type Treatment Note Next Visit Plan Pt needs stabilization neck/ back and progression onto Independent HEP, possible DC end of next week if resolution of pain.
--- NOTE | 2018-07-01 14:09 | PT.OTN ---
Current Diagnoses Other chronic pain (07/01/18) Pain in right shoulder (07/01/18) Pain in left shoulder (07/01/18) Cervicalgia (07/01/18) Lumbago with sciatica, right side (07/01/18) Lumbago with sciatica, left side (07/01/18) Physical Therapy Treatment Note PT-OP-A Visit Information Start: 04/14/18 16:14 Freq: Status: Active Protocol: Document 07/01/18 12:50 LRN (Rec: 07/01/18 14:06 LRN [id number]) Out-Patient Physical Therapy Visit Information Visit Information Visit Type Discharge Summary Visit Start Time 12:50 Visit Stop Time 13:50 Total Visit Minutes 60 Visit Number 04/22 Number of BRAKES INSPECTOR Visits 0 Evaluation Information Evaluation Date 04/15/18 PT-OP-B Current Condition Start: 04/14/18 16:14 Freq: Status: Active Protocol: Document 04/15/18 11:22 LRN (Rec: 04/15/18 12:14 LRN [id number]) Current Condition History of Current Condition Onset Date 3 months ago Current Complaints L shoulder & tailbone pain and tingling, R posterior thigh pain. History of Current Condition During this past summer after yard working she started to have onset of L shoulder and tailbone pain. She reports L shoulder tingling and tingling in the tailbone and radiating pain down the posterior R thigh. She normally does yoga for exercise but hasn't been doing yoga for the past month. She restarted yoga yesterday. PMH: Mole or possible wart on the inner L ear canal, Basal Cell Carcinoma, Chronic bilateral LBP with bilateral Sciatica, L ankle fracture 2013. Prior Treatments and Tests X-ray, results unknown. Pt reports doctor told her pain is due to muscles in upper back. Pt given muscle relaxers that was helpful. Future Testing and Treatments Planned Follow up MD appt in June 2018. Treatment Goals Patient/Caregiver Goals Goal with therapy is restart exercise without increasing pain. Prior Functional Status Baseline Function- ADL's Independent Baseline Function- Mobility Independent Baseline Function- Work/School Homemaker. Baseline Function- Other Restricted with lifting heavy things, moving furniture. Ongoing Mild pain. Current Functional Impairments (Reported) Functional Limitations- ADL's Pain with ADL's slowing function. Functional Limitations- Recreation/ Restricted with exercise Hobbies program. Functional Limitations- Other Limited with lifting. Personal Factors Other Personal Factors That May Effect Prior history of LBP and Therapy/Recovery radicular R leg pain with partial resolution. Prior history of L shoulder pain with partial resolution. PT-OP-C Subjective Start: 04/14/18 16:14 Freq: Status: Active Protocol: Document 07/01/18 12:50 LRN (Rec: 07/01/18 14:06 LRN [id number]) OP-PT Subjective Patient Comments Patient Comments Have been doing well except 2 days ago was mopping and had onset of posterior thigh pain that went away by the time she woke. Tinglng in the L shoulder occasionally. States she has been house hunting and plans on moving to [facility]. Patient Reported Progress Improving Patient Questionnaires Lower Extremity Functional Scale LEFS Score 77 LEFS Impairment 1 to 19% Impaired (Score 63-79 ) Quick Dash- Upper Extremity Quick Dash UE Score 6.18 Quick Dash UE Impairment 1 to 19% Impaired (Score 1-19) OP-PT Pain Assessment Location Bilateral Lower Back Pain Location Details Tailbone Intensity 0 Scale Used Numeric (1 - 10) Left Posterior Shoulder Pain Location Details Supraspinatus & Rhomboids Intensity 1 Scale Used Numeric (1 - 10) PT-OP-E Functional Tests Start: 04/14/18 16:14 Freq: Status: Active Protocol: Document 04/15/18 11:22 LRN (Rec: 04/15/18 16:59 LRN [id number]) Functional Tests Apley's Scratch Test Action 1: The subject is instructed to touch the opposite shoulder with his/her hand. This motion checks Glenohumeral adduction, internal rotation , horizontal adduction and scapular protraction Action 2: The subject is instructed to place his/her arm overhead and reach behind the neck to touch his/her upper back. This motion checks Glenohumeral abduction, external rotation and scapular upward rotation and elevation. Action 3: The subject puts his/her hand on the lower back and reaches upward as far as possible. This motion checks glenohumeral adduction, internal rotation and scapular retraction with downward rotation Action 2- Left T3 Action 2- Right T3 Action 3- Left T8 Action 3- Right T9 PT-OP-F Manual Assessment Start: 04/14/18 16:14 Freq: Status: Active Protocol: Document 04/15/18 11:22 LRN (Rec: 04/15/18 16:59 LRN [id number]) Manual Assessments Soft Tissue Assessment Soft Tissue Mobility Assessment Increased tension of L side of coccyx, L lumbar paraspinals and L posterior upper back intrascapular and supraspinatus. Joint Mobility Assessment Joint Mobility Assessment Decreased in Lumbar spine for R sidebend and L rotation. PT-OP-H Neuro Start: 04/14/18 16:14 Freq: Status: Active Protocol: Document 04/15/18 11:22 LRN (Rec: 04/15/18 16:59 LRN [id number]) Sensation Evaluation Gross Sensation Gross Sensation WNL Deep Tendon Reflex & Clonus Assessment Deep Tendon Reflex Left Achilles Deep Tendon Reflex 1+ Diminished PT-OP-J Posture/Palpation/Skin Start: 04/14/18 16:14 Freq: Status: Active Protocol: Document 04/15/18 11:22 LRN (Rec: 04/15/18 16:59 LRN [id number]) Posture Evaluation Position Standing Evaluation View All positions Shoulder Posture (L) Elevated Comments Posture Comments Standing Posture: Neck is R tilted, L shoulder is elevated and retracted, moderate Dowagers hump, decreased thoracic kyphosis except T6 is posterior displaced, T7 is R rotated, mid thoracic spine is C-curved with apex on the left, Coccyx is sidebent right , mild varus of legs. Palpation Assessment Location Two Palpation Location Coccyx Palpation Findings Tenderness Palpation Details L lateral side of coccyx tender. One Palpation Location L Supraspinatus muscle belly Palpation Findings Muscle Guarding Tenderness Trigger Point PT-OP-K Range of Motion Start: 04/14/18 16:14 Freq: Status: Active Protocol: Document 04/15/18 11:22 LRN (Rec: 04/15/18 16:59 LRN [id number]) Cervical Spine Range of Motion Cervical Spine Passive Percentage Rotation Left 90 Comments All other motions were WNL. Lumbar Spine Range of Motion Lumbar Spine Active Degrees Testing Position Standing Flexion 90 Extension 10 Rotation Left 40 Rotation Right 45 Lateral Flexion Left 20 Lateral Flexion Right 10 ROM Limitations Soft Tissue Tightness Bony Restriction Comments Rotation ROM is approximate. Hip Goniometric Range of Motion Hip Measured in Degrees Right Passive Testing Position Supine Internal Rotation 45 External Rotation 75 Left Passive Testing Position Supine Internal Rotation 40 External Rotation 75 PT-OP-L Special Tests Start: 04/14/18 16:14 Freq: Status: Active Protocol: Document 04/15/18 11:22 LRN (Rec: 04/15/18 16:59 LRN [id number]) Special Tests Lumbar Spine Special Tests Straight Leg Raise Test Results Negative bilaterally Shoulder Special Tests Elevation Impingement Test Results Negative Comments L shoulder PT-OP-M Strength Start: 04/14/18 16:14 Freq: Status: Active Protocol: Document 04/15/18 11:22 LRN (Rec: 04/15/18 16:59 LRN [id number]) Cervical Spine Strength Cervical Spine Manual Muscle Testing Testing Position Supine Hip Strength Hip Manual Muscle Testing Left Extension (S1) 4 Good Knee Strength Knee Manual Muscle Testing Left Flexion (S2) 4 Good Comments Generally LE strength is 5/5 bilaterally except as noted above for L hip and knee. PT-OP-Q Treatments Start: 04/14/18 16:14 Freq: Status: Active Protocol: Document 07/01/18 12:50 LRN (Rec: 07/01/18 14:06 LRN [id number]) Therapeutic Exercises Supine Exercises Fig 4 hip stretch Side bilateral Reps/Minutes 4' Stretch to Hip IR's Supine Exercise Name Piriformis stretch Side left Reps/Minutes 3' HS/LE Neural stretch Side bilateral Reps/Minutes 4' Standing Exercises Chris arm swings Reps/Minutes 10x Shoulder ext Side bilateral Resistance Lev 2 T-Band Reps/Minutes 10 x 3 Lat Dorsi Standing Exercise Name End range shoulder Flex Side bilateral Resistance Lev 1 T-Band Comments V Cuing for Lumbar neutral spine positioning Row Side bilateral Resistance Lev 2 T-Band Reps/Minutes 10x3 Manual Therapy Treatment Soft Tissue Mobilization Mid back Body Location Down spine & adjacent areas Mobilization Type Myofascial Release Intensity/Depth Superficial Body Position Prone Low back Body Location R, then L Lumbar paraspinals and upper gluteals Mobilization Type Myofascial Release Intensity/Depth Superficial Body Position Prone Self-Care/Home Management Treatment Education Patient Education Home Exercise Program Activities Self-Care/Home Management Activities Issued and reviewed HEP of hip IR/ER/LE neural stretch and shoulder strengthening ex's. I/S pt in abdominal strengthening and proper body mechanics for lifting and moving objects (vacumming). PT-OP-R Modalities Start: 04/14/18 16:14 Freq: Status: Active Protocol: Document 07/01/18 12:50 LRN (Rec: 07/01/18 14:06 LRN [id number]) Electric Stimulation Electric Stimulation Upper back Body Location UT>T6 Duration (Minutes) 15 Intensity 18 Target/Sweep Sweep Patient Position Hooklying Combined With Heat/Cold Hot Pack Hot Pack/Cold Pack Treatment Hot Pack Location Low back Patient Position Supine Treatment Duration (minutes) 10 Comments Used with E-Stim PT-OP-T Assessment and Plan Start: 04/14/18 16:14 Freq: Status: Active Protocol: Document 07/01/18 12:50 LRN (Rec: 07/01/18 14:06 LRN [id number]) Physical Therapy Assessment Goals Three Impairment Upper back and low back/coccyx pain Counselor Supervisor Goal (LTG) Pt will be able to return to yoga exercise and home activities without onset of pain. (05/01/18: Pt returned to yoga and did gardening without pain onset for first time). LTG Duration 06/17/09 (07/01/18: GOAL MET) Two Impairment L shoulder pain limiting ability to sleep Counselor Supervisor Goal (LTG) Pt will be able to improve ability to sleep at night without being limited by pain. LTG Duration 07/25/18 (07/01/18: GOAL MET) One Impairment Lacks appropriate HEP Snf Goal (LTG) Pt will be independent in HEP self care exercises. LTG Duration 07/25/18 (07/01/18: GOAL MET) Assessment Summary Assessment Goals met. Pt is back doing yoga without pain. Her L shoulder tingling is intermittent and she has been painfree of low back and leg pain except after mopping one day. The pt appears to have a good understanding of proper body mechanics and self care methods/exercise at this time. Physical Therapy Plan Discharge Physical Therapy Discharge Reasons Goals Met Discharge Comments Pt did very well with her rehab and is to continue with her HEP.
== END 2018-07-01 15:00 ==
LOC: PHYS 12:45
PROVIDERS: PCP Family Medicine; Visit Provider Family Medicine
DX: M25.511 Pain in right shoulder (principal); G89.29 Other chronic pain; M25.512 Pain in left shoulder; M54.2 Cervicalgia; M54.42 Lumbago with sciatica, left side; M54.41 Lumbago with sciatica, right side
CPT/HCPCS: 97014; 97032; 97110; 97140; 97162; 97535; G0283

== ENCOUNTER → 2020-05-03 13:00 | Outpatient (CLI) | payer OTHER, SELFPAY ==
[2020-05-03 15:47] LABS: COVID19 -Nasal RAPID Negative (Negative)
== END ==
PROVIDERS: PCP Family Medicine; Visit Provider Physical Medicine & Rehabilitation
DX: Z01.812 Encounter for preprocedural laboratory examination (principal); Z11.59 Encounter for screening for other viral diseases
CPT/HCPCS: 87635; C9803

== ENCOUNTER 2020-05-05 09:15 | Outpatient (CLI) | payer OTHER, MEDICARE, SELFPAY ==
[2020-05-05] VITALS (8 sets, daily range): BP systolic 94–144; BP diastolic 51–67; PULSE 55–69; RESP 10–19; TEMP 36.3; O2SAT 95–99
--- NOTE | 2020-05-05 09:18 | DI.RAD.S_ITS ---
PROCEDURE: PAIN C/T INTERLAMINAR INJECT INDICATIONS: SPINAL STENOSIS COMPARISON: [facility], MR, MR CERVICAL SPINE WITHOUT CONTRAST, 07/02/2019, 14:09. FINDINGS: Fluoroscopic spot filming was performed to verify placement of a spinal needle at the L4-L5 level, as labeled on the films. Appropriate location of the needle tip was confirmed by injection of iodinated contrast. IMPRESSION: Intraprocedural examination within normal limits. Dictated by: Richard Gutiérrez M.D. on 05/05/2020 at 11:04 Approved by: Richard Gutiérrez M.D. on 05/05/2020 at 11:04
[2020-05-05] MEDS: fentaNYL 100 MCG/2 ML INJ 50 MCG IV (10:20)
[2020-05-05] MEDS: MIDAZOLAM 5 MG/5 ML VIAL IV (10:23)
[2020-05-05] MEDS: IOPAMIDOL 15 ML VIAL 3 ML INJ (10:24)
[2020-05-05] MEDS: BUPIVACAINE 0.25% (PF) VIAL 2 ML INJ (10:24)
[2020-05-05] MEDS: DEXAMETHASONE 10 MG/ML VIAL 30 MG INJ (10:24)
--- NOTE | 2020-05-05 10:35 | P.PCN_ITS ---
Date/Time/Diagnoses Date of procedure: 05/05/20 Time of procedure: 10:35 Pre-procedure diagnosis: 1. CERVICAL STENOSIS, 2. CERVICAL HNP WITH UPPER EXTREMITY RADICULAR FEATURES Post-procedure diagnosis: same Procedure Notes Procedure: 1. FLUORSCOPICALLY GUIDED CONTRAST CONTROLLED INTERLAMINAR EPIDURAL STEROID INJECTION - C6/7 TL CALI Indications: Stella is referred by Dr. Clifton for treatment of Cervical HNP with Upper Extremity Paresthesias. Physician: Juan Mao Total Fluoroscopy time (seconds): 22 Total sedation minutes: 13 Complications: none Procedure in detail & Post-procedure care: FINDINGS Cervical Stenosis due to disc deterioration and nerve root irritation and nerve root irritation DESCRIPTION OF PROCEDURE Fluoroscopically guided, contrast-controlled C6/7 translaminar epidural steroid injection with conscious sedation. Following review of allergy and review of potential side effects and complications, including, but not necessarily limited to, infection, allergic reaction, local tissue breakdown, temporary as well as permanent nerve injury, stroke, paralysis, and possible , the patient indicated that patient understood and agreed to proceed. An informed consent document was signed by the patient, witnessed by a nurse, and placed in the patient's chart. Additionally, other treatment options including modalities, medications, and physical therapy were reviewed with the patient. After review of previous anaesthesic history and IV conscious sedation the patient was deemed safe to proceed with today?s procedure with IV conscious sedation as ASA class II designation. Safety time-out was performed to confirm patient ID, procedure to be performed and site of procedure. IV sedation was accomplished with a combination of 3mg of Versed and 50mcg of Fentanyl administered by the RN after DO order, titrated to patient comfort during the course of the procedure while the patient remained responsive to all verbal commands. In the prone position, following sterile prep and drape of the cervical region, the C6/7 translaminar space was identified fluoroscopically. The skin was anesthetized via a 25-gauge 1.5-inch needle with 1% lidocaine solution. At this point, a 25-gauge, 2.5-inch short bevel spinal needle was atraumatically introduced and advanced under fluoroscopic guidance into epidural space at the C6/7 translaminar space. Depth was confirmed on lateral view. Radiological data, including multiple fluoroscopic views of the cervical spine, reveal a spinal needle at the C6/7 translaminar space. Lateral views then show placement of the needle in the epidural space. Subsequent views show contrast material flowing superiorly and inferiorly in the epidural space. DSA fluoroscopy with live contrast injection, once again, confirmed no vascular or intrathecal uptake. At this point, using loss of resistance technique with saline and air, the epidural space was entered. Following negative aspiration, injection of ap proximately 1.5 cc of Isovue-200 with live fluoroscopy in the AP view confirmed epidural flow in the epidural space without vascular or intrathecal uptake observed. Subsequently, a test dose of 1 cc of 1% lidocaine solution was injected and patient was observed for two minutes without signs or symptoms of complications, including abdominal pain, shortness of breath, bilateral upper or lower extremity weakness, nausea and vomiting, prior to steroid injection. At this point, 2cc or 20mg of dexamethasone was then injected without incident. The patient tolerated the procedure well without signs or symptoms of complications prior to being transferred to the recovery area for further monitoring, The patient was then transferred to the recovery area where they were observed for an appropriate period of time after the injection. The patient reported a VAS score of 6 prior to the procedure and a post-procedure VAS of 0. POST OP INSTRUCTIONS The patient was provided a Pain Log to continue to record their response to the target-specific procedure prior to follow-up visit with the referring provider. Additionally, specific post-injection care instructions and a contact number to our office were provided if concerns arise regarding possible complications associated with the procedure are suspected.
== END 2020-05-05 11:05 | disposition home or self-care (01) ==
LOC: RAD 09:18
PROVIDERS: PCP Family Medicine; Referring Provider Physical Medicine & Rehabilitation; Visit Provider Physical Medicine & Rehabilitation
DX: M48.02 Spinal stenosis, cervical region (principal); M50.123 Cervical disc disorder at C6-C7 level with radiculopathy
CPT/HCPCS: 62321; 99152; J1100; J2250; J3010

== ENCOUNTER → 2020-07-20 08:59 | Outpatient (CLI) | payer OTHER, MEDICARE, SELFPAY ==
--- NOTE | 2020-07-20 09:02 | DI.RAD.S_ITS ---
PROCEDURE: XR CERVICAL SPINE 4V OR 5V INDICATIONS: neck pain TECHNIQUE: 5 views of the cervical spine acquired. COMPARISON: None. FINDINGS: Bones: No fractures or dislocations to the T1 level. Mild C3-C4, C4-C5, C5-C6, C6-C7 and C7-T1 degenerative disc disease. Mild C3-C4, C5-C6, C6-C7 and C7-T1 facet arthropathy. Moderate right and severe left C4-C5 facet arthropathy. Moderate bilateral C4-C5 and C5-C6 uncovertebral joint hypertrophy. Mild bilateral C4-C5 and C5-C6 neural foraminal narrowing. Soft tissues: No prevertebral soft tissue swelling. IMPRESSION: 1. Multilevel degenerative disc disease. 2. Multilevel facet and uncovertebral arthropathy. 3. No fracture. No acute osseous lesion. If symptoms and/or clinical suspicion for pathology persists, evaluation with MRI should be considered for further assessment. Dictated by: Mary Meeks MD, PhD on 07/20/2020 at 17:17 Approved by: Mary Meeks MD, PhD on 07/20/2020 at 17:20
== END ==
PROVIDERS: PCP Family Medicine; Referring Provider Physical Medicine & Rehabilitation; Visit Provider Physical Medicine & Rehabilitation
DX: M50.11 Cervical disc disorder with radiculopathy, high cervical region (principal); M48.02 Spinal stenosis, cervical region; M47.22 Other spondylosis with radiculopathy, cervical region; M54.9 Dorsalgia, unspecified; G89.29 Other chronic pain
CPT/HCPCS: 72050

== ENCOUNTER → 2020-08-30 12:44 | Outpatient (CLI) | payer MEDICARE, OTHER, SELFPAY ==
[2020-08-30 13:35] LABS: COVID19 -Nasal RAPID Negative (Negative)
== END ==
PROVIDERS: PCP Family Medicine; Visit Provider Physical Medicine & Rehabilitation
DX: Z20.822 Contact with and (suspected) exposure to COVID-19 (principal)
CPT/HCPCS: 87635; C9803

== ENCOUNTER 2020-09-01 08:48 | Outpatient (CLI) | payer MEDICARE, OTHER, SELFPAY ==
[2020-09-01] VITALS (8 sets, daily range): BP systolic 96–131; BP diastolic 53–61; PULSE 16–66; RESP 11–96; TEMP 36.3; O2SAT 97–100
--- NOTE | 2020-09-01 08:51 | DI.RAD.S_ITS ---
PROCEDURE: PAIN C/T FACET INJ/BLK 1ST L INDICATIONS: LEFT C4/5,C5/6,C6/7 FACET JOINT INJECTION COMPARISON: [facility], CR, XR CERVICAL SPINE 4V OR 5V, 07/20/2020, 9:02. FINDINGS: Fluoroscopic spot filming was performed to verify placement of spinal needles on the left at the C4-C5, C5-C6, and C6-C7 level(s), as labeled on the films. Appropriate location(s) of the needle tip(s) was confirmed by injection of iodinated contrast. IMPRESSION: Intraprocedural examination within normal limits. Dictated by: Richard Gutiérrez M.D. on 09/01/2020 at 9:16 Approved by: Richard Gutiérrez M.D. on 09/01/2020 at 9:16
[2020-09-01] MEDS: MIDAZOLAM 5 MG/5 ML VIAL IV (09:36)
[2020-09-01] MEDS: fentaNYL 100 MCG/2 ML INJ 50 MCG IV (09:36)
[2020-09-01] MEDS: DEXAMETHASONE 10 MG/ML VIAL 30 MG INJ (09:41)
[2020-09-01] MEDS: IOPAMIDOL 15 ML VIAL 3 ML INJ (09:42)
[2020-09-01] MEDS: BUPIVACAINE 0.5% (PF) VIAL 2 ML INJ (09:42)
--- NOTE | 2020-09-01 09:53 | P.PCN_ITS ---
Date/Time/Diagnoses Date of procedure: 09/01/20 Time of procedure: 09:53 Pre-procedure diagnosis: 1. FACET ARTHROPATHY 2. AXIAL NECK PAIN Post-procedure diagnosis: same Procedure Notes Procedure: 1. FLUOROSCOPICALLY GUIDED, CONTRAST-CONTROLLED LEFT C4/5, C5/6 AND C6/7 FACET JOINT INJECTIONS WITH CONSCIOUS SEDATION. Indications: Stella is referred by Dr. Clifton for treatment of Axial Neck Pain Physician: Juan Mao Total Fluoroscopy time (seconds): 10 Total sedation minutes: 16 Complications: none Procedure in detail & Post-procedure care: DESCRIPTION OF PROCEDURE Fluoroscopically guided, contrast-controlled left C5/6 and C6/7 facet joint injections with conscious sedation. Following review of allergy and review of potential side effects and complications, including, but not necessarily limited to, infection, allergic reaction, local tissue breakdown, stroke, temporary or permanent nerve injury and paralysis, the patient indicated that the patient understood and agreed to proceed. An informed consent document was signed by the patient, witnessed by a nurse, and placed in the patient's chart. Additionally, other treatment options including medications, modalities, and physical therapy were reviewed with the patient. After review of previous anaesthesic history and IV conscious sedation the patient was deemed safe to proceed with today?s procedure with IV conscious sedation as ASA class II designation. Safety time-out was performed to confirm patient ID, procedure to be performed and site of procedure. IV sedation was accomplished with a combination of 3mg of Versed and 50mcg of Fentanyl was administered by the RN after DO order, titrated to patient comfort during the course of the procedure while the patient remained responsive to all verbal commands In the prone position, following sterile prep and drape of the cervical spine region, the posterior aspect of the left C4/5, C5/6 and C6/7 facet joints were identified fluoroscopically. The skin was anesthetized via a 25-gauge 1.5-inch needle with 1% lidocaine solution into the corresponding facet joints. At this point, a 25-gauge 2.5-inch spinal needle was atraumatically introduced and advanced under fluoroscopic guidance into the corresponding facet joints. Following negative aspiration, injections of approximately 0.2cc of Isovue 200 confirmed interarticular placement without vascular uptake. At this point, a total of 1cc including 0.5cc or 5mg of dexamethasone combined with 0.5cc of 1% lidocaine solution was injected without complication into each of the corresponding facet joints. The procedure tolerated the procedure well without signs or symptoms of complications prior to transfer to the recovery area continued monitoring without incident. The patient was then transferred to the recovery area where they were observed for an appropriate period of time after the injection. The patient reported a VAS score of 7 prior to the procedure and a post- procedure VAS of 0. POST OP INSTRUCTIONS They were provided a Pain Log to continue to record their response to the target-specific procedure prior to their follow-up visit with their referring physician. Additionally, specific post-injection care instructions and a contact number to our office were provided if concerns arise regarding possible complications associated with the procedure are suspected.
== END 2020-09-01 10:14 | disposition home or self-care (01) ==
LOC: RAD 08:51
PROVIDERS: PCP Family Medicine; Referring Provider Family Medicine; Visit Provider Physical Medicine & Rehabilitation
DX: M47.812 Spondylosis without myelopathy or radiculopathy, cervical region (principal); M50.20 Other cervical disc displacement, unspecified cervical region; M54.12 Radiculopathy, cervical region
CPT/HCPCS: 64490; 64491; 64492; 99152; J1100; J2250; J3010